=== PATIENT | male | born 1960 | race Caucasian/White ===

== ENCOUNTER 2020-11-24 16:31 | Observation (INO) | payer OTHER ==
[2020-11-24 18:01] LABS: Absolute Lymphocytes (CBC) 0.6 K/uL (0.7-4.9); Basophils % 0.1 % (0-1.3); Hematocrit 32.2 % (39.6-49.0); Lymphocytes % 10.3 % (15.3-44.8); MPV 9.3 fL (7.6-11.3); RBC Red Blood Cell Count 3.01 M/uL (4.33-5.43)
[2020-11-24] MEDS ORDERED: METHYLPREDNISOLONE 125 MG INJ ONE (18:07)
--- NOTE | 2020-11-24 18:17 | EDPHYS ---
Physician Documentation [facility] Name: Saúl Tan Age: 59 yrs Sex: Male : 1960 Arrival Date: 11/24/2020 Time: 16:33 Bed 25 Private MD: ED Physician Sergio Euceda HPI: 11/24 17:44 This 59 yrs old Male presents to ER via Ambulatory with complaints of COVID+, rn Pneumonia. 17:44 The patient has shortness of breath at rest, with light activity. Onset: The rn symptoms/episode began/occurred 1 week(s) ago. Duration: The symptoms are continuous. The patient's shortness of breath is aggravated by coughing, exertion, light activity. Associated signs and symptoms: Pertinent positives: non-productive cough, Pertinent negatives: chest pain, fever, hemoptysis. Severity of symptoms: At their worst the symptoms were moderate in the emergency department the symptoms are unchanged. The patient has not experienced similar symptoms in the past. The patient has been recently seen by a physician:. Reports diagnosed with Covid pneumonia this morning, sick for 1 week, seen at [place] emergency room and sent home with home oxygen and given antibiotics. Family states is doing worse. Oxygen 81% on room air. Requiring 4 L of oxygen at home and still short of breath. No chronic lung problems. No history of DVT or PE.. Historical: - Allergies: 17:20 No Known Allergies; kg - Home Meds: 17:20 lisinopril 5 mg Oral tab 1 tab once daily [Active]; dexamethasone 2 mg Oral tab 3 times kg per day [Active]; famotidine 20 mg Oral tab 1 tab 2 times per day [Active]; aspirin 325 mg Oral tab 1 tab once daily [Active]; amoxicillin-pot clavulanate 875-125 mg Oral tab 1 tab every 12 hours [Active]; ivermectin 3 mg oral tab 2 tabs [Active]; - PMHx: 17:20 Hypertensive disorder; Hypercholesterolemia; kg - PSHx: 17:20 None; kg - Immunization history:: Adult Immunizations not up to date, Client reports having NOT received the Covid vaccine. - Social history:: Smoking status: Patient denies any tobacco usage or history of. - Family history:: not pertinent. - Hospitalizations: : No recent hospitalization is reported. ROS: 17:44 Constitutional: Negative for fever, chills, and weight loss, Eyes: Negative for injury, rn pain, redness, and discharge, ENT: Negative for injury, pain, and discharge, Neck: Negative for injury, pain, and swelling, Cardiovascular: Negative for chest pain, palpitations, and edema, Respiratory: Positive for cough and shortness of breath Abdomen/GI: Negative for abdominal pain, nausea, vomiting, diarrhea, and constipation, Back: Negative for injury and pain, : Negative for injury, bleeding, discharge, and swelling, MS/Extremity: Negative for injury and deformity, Skin: Negative for injury, rash, and discoloration, Neuro: Negative for headache, numbness, tingling, and seizure. 17:44 All other systems are negative. Exam: 17:44 Constitutional: This is a well developed, well nourished patient who is awake, alert, rn mild tachypnea Head/Face: Normocephalic, atraumatic. Eyes: Pupils equal round and reactive to light, extra-ocular motions intact. Lids and lashes normal. Conjunctiva and sclera are non-icteric and not injected. Cornea within normal limits. Periorbital areas with no swelling, redness, or edema. ENT: No stridor Cardiovascular: Regular rate and rhythm. No pulse deficits. Respiratory: Mild tachypnea, no retractions Abdomen/GI: Soft, non-tender Skin: Warm, dry MS/ Extremity: Pulses equal, no cyanosis. Neuro: Awake and alert, GCS 15 17:53 ECG was reviewed by the Attending Physician. rn Vital Signs: 17:12 BP 115 / 70; Pulse 69; Resp 20; Temp 97.3(TE); Pulse Ox 81% on R/A; Weight 90.72 kg; kg Height 6 ft. 1 in. (185.42 cm); Pain 0/10; 17:25 Pulse Ox 96% on 4 lpm NC; kg 17:53 BP 129 / 74; Pulse 65; Resp 19; Temp 98.2(O); Pulse Ox 95% on 4 lpm NC; Weight 86.18 ld1 kg; Height 6 ft. 1 in. (185.42 cm); Pain 0/10; 17:53 Body Mass Index 25.07 (86.18 kg, 185.42 cm) ld1 MDM: 17:33 Patient medically screened. rn 18:14 Differential diagnosis: Bronchitis pneumonia, pulmonary edema, Covid, Covid pneumonia. rn Antibiotic administration: Not indicated. Data reviewed: vital signs, nurses notes. Data reviewed: lab test result(s), EKG, radiologic studies, plain films, and as a result, I will admit patient. Counseling: I had a detailed discussion with the patient and/or guardian regarding: the historical points, exam findings, and any diagnostic results supporting the discharge/admit diagnosis, lab results, radiology results, the need for further work-up and treatment in the hospital. Response to treatment: the patient's symptoms have mildly improved after treatment, and as a result, I will admit patient. Admission orders: after a detailed discussion of the patient's condition and case, the admit orders are written by me. ED course: Patient with Covid pneumonia, will admit to hospitalist service given oxygen 81% on room air.. 11/24 17:35 Order name: BMP rn 11/24 17:35 Order name: Blood Culture Adult (2) rn 11/24 17:35 Order name: C-Reactive Protein 11/24 17:35 Order name: CBC with Diff rn 11/24 17:35 Order name: D-Dimer; Complete Time: 18:16 11/24 17:35 Order name: Ferritin rn 11/24 17:35 Order name: LFT's 11/24 17:35 Order name: Lactate 11/24 17:35 Order name: PT-INR; Complete Time: 18:16 11/24 17:35 Order name: Procalcitonin 11/24 17:35 Order name: Ptt, Activated; Complete Time: 18:16 10 17:35 Order name: Troponin (emerg Dept Use Only) rn 11/24 17:35 Order name: Basic Metabolic Panel [facility] 11/24 17:35 Order name: Blood Culture [facility] 11/24 17:35 Order name: C-Reactive Protein [facility] 11/24 18:44 Order name: CBC Smear Scan [facility] 11/24 21:33 Order name: Lactate Sepsis 2 HR Follow-up [facility] 11/24 22:47 Order name: Glucose, Ancillary Testing [facility] 11/25 05:44 Order name: CBC with Automated Diff [facility] 11/25 05:55 Order name: Lactate [facility] 11/25 06:27 Order name: Comprehensive Metabolic Panel [facility] 11/25 06:27 Order name: Phosphorus [facility] 11/25 06:27 Order name: Lipid Profile [facility] 11/25 06:27 Order name: C-Reactive Protein [facility] 11/25 06:27 Order name: T4 Free [facility] 11/25 06:27 Order name: Magnesium [facility] 11/25 06:27 Order name: Thyroid Stimulating Hormone [facility] 11/25 06:27 Order name: Ferritin [facility] 11/25 06:27 Order name: Folic Acid, (Folate) [facility] 11/25 06:27 Order name: Vitamin B12 Level [facility] 11/24 17:35 Order name: XRAY Chest (1 view) rn 08 17:35 Order name: EKG; Complete Time: 17:35 rn 11/24 17:35 Order name: Cardiac monitoring; Complete Time: 17:42 rn 11/24 17:35 Order name: Droplet/Contact Precautions; Complete Time: 17:42 rn 11/24 17:35 Order name: EKG - Nurse/Tech; Complete Time: 17:53 rn 11/24 17:35 Order name: IV Start; Complete Time: 17:42 rn 08/10 17:35 Order name: Labs collected and sent; Complete Time: 17:42 rn 10 17:35 Order name: O2 Per Protocol; Complete Time: 17:42 rn 10 17:35 Order name: O2 Sat Monitoring; Complete Time: 17:42 rn 08/10 19:27 Order name: CONS Physician Consult [facility] 11/25 06:37 Order name: Procalcitonin [facility] 11/25 08:44 Order name: Lactate Sepsis 2 HR Follow-up [facility] 11/25 10:07 Order name: CBC Smear Scan [facility] 11/25 11:07 Order name: CT [facility] 11/25 13:02 Order name: Glucose, Ancillary Testing [facility] EC:53 Rate is 56 beats/min. Rhythm is regular. Left axis deviation noted. QRS is negative in rn leads I, aVL. LA interval is normal. QRS interval is normal. QT interval is normal. No Q waves. T waves are Normal. No ST changes noted. Clinical impression: Sinus bradycardia. Interpreted by me. Reviewed by me. Administered Medications: 17:53 Drug: SOLU-Medrol (methylPrednisoLONE) 125 mg Route: IVP; Site: right antecubital; ld1 Disposition Summary: 11/24/20 18:16 Hospitalization Ordered Hospitalization Status: Inpatient Admission rn Provider: Kadeem Amador rn Condition: Stable rn Problem: new rn Symptoms: have worsened rn Bed/Room Type: Standard rn Location: [facility] ER HOLD(11/24/20 20:39) cg Room Assignment: ERHOLD-(11/24/20 20:39) cg Diagnosis - Pneumonia due to SARS-associated coronavirus rn - Hypoxemia rn Forms: - Medication Reconciliation Form rn - SBAR form rn Signatures: Dispatcher [employer] EDMS Sergio Euceda MD MD rn Garcia, Cindy, RN RN cg Sofia Heredia RN RN ld1 Yael Paula RN RN kg Corrections: (The following items were deleted from the chart) 20:39 18:16 Telemetry/MedSurg (Inpatient) rn cg 20:39 18:16 rn cg
--- NOTE | 2020-11-24 18:17 | ER ---
Nurse's Notes [facility] Name: Saúl Tan Age: 59 yrs Sex: Male : 1960 Arrival Date: 11/24/2020 Time: 16:33 Bed 25 Private MD: Diagnosis: Pneumonia due to SARS-associated coronavirus;Hypoxemia Presentation: 11/24 17:12 Chief complaint: Patient states: SOB. Pts stated, " Hes been 85% on 4L at home and kg [place] told us to bring him to the ER." Pt was diagnosed with COVID Pneumonia today at [place] and sent home with oxygen.". Coronavirus screen: Client denies travel out of the [place] in the last 14 days. At this time, unable to obtain information related to travel outside the [place] Client presents with at least one sign or symptom that may indicate coronavirus-19. Standard/surgical mask placed on the client. Provider contacted for isolation considerations. Client reports previous positive COVID test result. Date of collection: November 20, 2020. Ebola Screen: Patient negative for fever greater than or equal to 101.5 degrees Fahrenheit, and additional compatible Ebola Virus Disease symptoms Patient denies exposure to infectious person. Patient denies travel to an Ebola-affected area in the 21 days before illness onset. Initial Sepsis Screen: Does the patient meet any 2 criteria? No. Patient's initial sepsis screen is negative. Does the patient have a suspected source of infection? No. Patient's initial sepsis screen is negative. Risk Assessment: Do you want to hurt yourself or someone else? Patient reports no desire to harm self or others. Onset of symptoms was November 12, 2020. 17:12 Method Of Arrival: Ambulatory kg 17:12 Acuity: JEMAL 3 kg Triage Assessment: 17:20 General: Appears in no apparent distress. Behavior is calm, cooperative, appropriate kg for age, quiet. Pain: Denies pain. Historical: - Allergies: 17:20 No Known Allergies; kg - Home Meds: 17:20 lisinopril 5 mg Oral tab 1 tab once daily [Active]; dexamethasone 2 mg Oral tab 3 times kg per day [Active]; famotidine 20 mg Oral tab 1 tab 2 times per day [Active]; aspirin 325 mg Oral tab 1 tab once daily [Active]; amoxicillin-pot clavulanate 875-125 mg Oral tab 1 tab every 12 hours [Active]; ivermectin 3 mg oral tab 2 tabs [Active]; - PMHx: 17:20 Hypertensive disorder; Hypercholesterolemia; kg - PSHx: 17:20 None; kg - Immunization history:: Adult Immunizations not up to date, Client reports having NOT received the Covid vaccine. - Social history:: Smoking status: Patient denies any tobacco usage or history of. - Family history:: not pertinent. - Hospitalizations: : No recent hospitalization is reported. Screenin:53 Abuse screen: Denies threats or abuse. Denies injuries from another. Nutritional ld1 screening: No deficits noted. Tuberculosis screening: No symptoms or risk factors identified. Fall Risk None identified. Assessment: 17:53 General: Appears in no apparent distress. comfortable, Behavior is calm, cooperative, ld1 appropriate for age. Pain: Denies pain. Neuro: Level of Consciousness is awake, alert, obeys commands, Oriented to person, place, time, situation. Cardiovascular: Capillary refill < 3 seconds Patient's skin is warm and dry. Rhythm is regular. Respiratory: Reports shortness of breath Airway is patent Respiratory effort is even, unlabored, Respiratory pattern is regular, symmetrical. GI: Abdomen is flat, non-distended. : No signs and/or symptoms were reported regarding the genitourinary system. EENT: No signs and/or symptoms were reported regarding the EENT system. Derm: No signs and/or symptoms reported regarding the dermatologic system. Musculoskeletal: No signs and/or symptoms reported regarding the musculoskeletal system. Vital Signs: 17:12 BP 115 / 70; Pulse 69; Resp 20; Temp 97.3(TE); Pulse Ox 81% on R/A; Weight 90.72 kg; kg Height 6 ft. 1 in. (185.42 cm); Pain 0/10; 17:25 Pulse Ox 96% on 4 lpm NC; kg 17:53 BP 129 / 74; Pulse 65; Resp 19; Temp 98.2(O); Pulse Ox 95% on 4 lpm NC; Weight 86.18 ld1 kg; Height 6 ft. 1 in. (185.42 cm); Pain 0/10; 17:53 Body Mass Index 25.07 (86.18 kg, 185.42 cm) ld1 ED Course: 16:33 Patient arrived in ED. mr 17:20 Triage completed. kg 17:20 Arm band placed on right wrist. kg 17:33 Sofia Heredia, RN is Primary Nurse. ld1 17:33 Sergio Euceda MD is Attending Physician. rn 17:53 Patient has correct armband on for positive identification. Placed in gown. Bed in low ld1 position. Call light in reach. Side rails up X2. biomedical equipment specialist on. Pulse ox on. NIBP on. Door closed. Noise minimized. Warm blanket given. 17:53 No provider procedures requiring assistance completed. Inserted saline lock: 20 gauge ld1 in right antecubital area, using aseptic technique. Blood collected. 18:05 XRAY Chest (1 view) In Process Unspecified. EDMS 18:15 Kadeem Amador is Hospitalizing Provider. rn Administered Medications: 17:53 Drug: SOLU-Medrol (methylPrednisoLONE) 125 mg Route: IVP; Site: right antecubital; ld1 Outcome: 18:16 Decision to Hospitalize by Provider. rn 11/25 17:56 Patient left the ED. ld1 Signatures: Dispatcher [employer] EDNY Honeycutt Latisha lee Sergio Euceda MD MD rn Dibbern, Lauren, RN RN ld1 Yael Paula RN RN kg
--- NOTE | 2020-11-24 18:31 | RAD REPORT ---
EXAM DESCRIPTION: RAD - Chest Single View - 11/24/2020 6:04 pm CLINICAL HISTORY: COVID Chest pain. COMPARISON: No comparisons FINDINGS: Portable technique limits examination quality. Extensive bilateral pulmonary opacities are present most compatible with COVID-19 infection. The hear t is normal in size. No displaced fractures.
[2020-11-24 18:35] LABS: ALT/SGPT 38 U/L (12-78); AST/SGOT 49 U/L (15-37); Alkaline Phosphatase 71 U/L (45-117); BUN Blood Urea Nitrogen 39 mg/dL (7-18); Bicarbonate 25 mmol/L (21-32); Bilirubin Direct 0.2 mg/dL (0-0.2); Bilirubin Total 0.6 mg/dL (0.2-1.0); Ferritin 1017.6 ng/mL (26-388); Glucose Level 141 mg/dL (74-106); Potassium 4.1 mmol/L (3.5-5.1); Protein, Total 7.5 g/dL (6.4-8.2); Sodium Level 143 mmol/L (136-145); Troponin (Emerg Dept Use Only) < 0.02 ng/mL (0.0-0.045)
[2020-11-24 18:44] LABS: Blood Morphology Comment NOTED (NOT SEEN); Macrocytosis 1+; Platelet Estimate ADEQ; White Blood Cell Scan OK (OK)
--- NOTE | 2020-11-24 20:21 | P.HP ---
Certification for Inpatient Patient admitted to: Inpatient With expected LOS: >2 Midnights Patient will require the following post-hospital care: None Practitioner: I am a practitioner with admitting privileges, knowledge of patient current condition, hospital course, and medical plan of care. Services: Services provided to patient in accordance with Admission requirements found in Title 42 Section 412.3 of the Code of Federal Regulations Patient History Date of Service: 11/24/20 Primary Care Provider: Morgan Reason for admission: covid pneumonia History of Present Illness: MR. Tan is a 59 yo M with HTN and HLD who presents with 2 weeks of SOB. His symptoms began 11/12 and he was diagnosed with COVID last Monday. Today he was sent home from [place] with home O2, but continued to be SOB so he presented to [facility] ED. He reports anorexia, cough, wheezing, pleuritic pain, diarrhea nd fever. Denies nausea and vomiting. Fluid intake has been poor. Initial saturations 81% on room air. Ddimer 5880, Lactate 2.7, Ferritin 1017, CRP 81.5. CXR consistent with covid pneumonia. - Past Medical/Surgical History Diabetic: No -: HTN -: HLD Past Surgical History: Patient denies surgical history - Family History Father -: Cancer Mother -: Stroke - Social History Smoking Status: Never smoker Alcohol use: No CD- Drugs: No Caffeine use: Yes Place of Residence: Home Review of Systems 10-point ROS is otherwise unremarkable General: Fever, Chills, Sweats Respiratory: Cough, Shortness of Breath, SOB with Excertion, Pleuritic Pain, Wheezing Gastrointestinal: Diarrhea Physical Examination - Physical Exam General: Alert, In no apparent distress HEENT: Atraumatic, PERRLA, Mucous membr. moist/pink, EOMI, Sclerae nonicteric Neck: Supple, 2+ carotid pulse no bruit, No LAD, Without JVD or thyroid abnormality Respiratory: Normal air movement, Expiratory wheezes Cardiovascular: Regular rate/rhythm, Normal S1 S2 Gastrointestinal: Normal bowel sounds, No tenderness Musculoskeletal: No tenderness Integumentary: No rashes Neurological: Normal speech, Normal strength at 5/5 x4 extr, Normal tone, Normal affect Lymphatics: No axilla or inguinal lymphadenopathy - Studies Laboratory Data (last 24 hrs) 11/24/20 17:45: PT 11.5, INR 1.00, APTT 23.3 L 11/24/20 17:45: WBC 6.10, Hgb 10.8 L, Hct 32.2 L, Plt Count 208 11/24/20 17:45: Sodium 143, Potassium 4.1, BUN 39 H, Creatinine 1.22, Glucose 141 H, Total Bilirubin 0.6, AST 49 H, ALT 38, Alkaline Phosphatase 71 Assessment and Plan - Problems (Diagnosis) (1) HTN (hypertension) Current Visit: Yes Status: Chronic Qualifiers: Hypertension type: primary hypertension Qualified Code(s): I10 - Essential (primary) hypertension (2) HLD (hyperlipidemia) Current Visit: Yes Status: Chronic Qualifiers: Hyperlipidemia type: unspecified Qualified Code(s): E78.5 - Hyperlipidemia, unspecified (3) Pneumonia due to COVID-19 virus Current Visit: Yes Status: Acute - Plan pulm consulted, respiratory therapy consulted daily saturations, saturations for home O2 continue covid supplements, steroids, ivermectin, xarelto daily CRP, ferritin, procal BP stable, continue to monitor continue home medications CTPE pending Discharge Plan: Home Plan to discharge in: 48 Hours - Advance Directives Does patient have a Living Will: No Does patient have a Durable POA for Healthcare: No - Code Status/Comfort Care Code Status Assessed: Yes (full code ) Critical Care: No Time Spent Managing Pts Care (In Minutes): 70
[2020-11-24] MEDS ORDERED: IPRATROPIUM BROM 0.5MG/2.5ML NEB PRN (22:07)
[2020-11-24] MEDS ORDERED: D50W 25 GM/50 ML SYRINGE IV PRN (22:07)
[2020-11-24] MEDS: FAMOTIDINE 20 MG TAB PO SCH (22:07)
[2020-11-24] MEDS ORDERED: MELATONIN 5 MG TABLET PO PRN (22:07)
[2020-11-24] MEDS: INSULIN -REGULAR HUMAN 50 UNIT/0.5 ML ML SQ SCH (22:07)
[2020-11-24] MEDS ORDERED: ACETAMINOPHEN 500 MG TAB PO PRN (22:07)
[2020-11-24] MEDS ORDERED: BENZONATATE 100 MG CAP PO PRN (22:07)
[2020-11-24] MEDS ORDERED: GLUCAGON 1 MG/VIAL IM PRN (22:07)
[2020-11-24] MEDS ORDERED: ONDANSETRON 4 MG/2 ML VIAL IV PRN (22:07)
[2020-11-24] MEDS ORDERED: ALBUTEROL 2.5 MG/3 ML NEB SOL NEB PRN (22:07)
[2020-11-24] MEDS ORDERED: NA CHLORIDE 0.9% 500 ML IV ONE (22:07)
[2020-11-24] MEDS ORDERED: MORPHINE 2 MG/ML SYR IV PRN (22:07)
[2020-11-24] MEDS: ASCORBIC ACID 500 MG TABLET PO SCH (22:07)
[2020-11-24 22:15] VITALS: BMI 27.2
[2020-11-24] MEDS ORDERED: FAMOTIDINE 20 MG TAB ONE (23:06)
[2020-11-24] MEDS ORDERED: ASCORBIC ACID 500 MG TABLET ONE (23:06)
[2020-11-24] MEDS ORDERED: NA CHLORIDE 0.9% 500 ML ONE (23:06)
[2020-11-24] MEDS ORDERED: METHYLPREDNISOLONE 40 MG INJ ONE (23:06)
[2020-11-25 05:37] LABS: Absolute Lymphocytes (CBC) 0.6 K/uL (0.7-4.9); Basophils % 0.1 % (0-1.3); Hematocrit 27.9 % (39.6-49.0); Lymphocytes % 14.3 % (15.3-44.8); MPV 8.9 fL (7.6-11.3)
[2020-11-25 06:18] LABS: ALT/SGPT 44 U/L (12-78); AST/SGOT 45 U/L (15-37); Albumin 2.7 g/dL (3.4-5.0); Alkaline Phosphatase 61 U/L (45-117); BUN Blood Urea Nitrogen 41 mg/dL (7-18); Bicarbonate 27 mmol/L (21-32); Bilirubin Total 0.5 mg/dL (0.2-1.0); Ferritin 992.5 ng/mL (26-388); Folic Acid, (Folate) 18.6 ng/mL (3.1-17.5); Glucose Level 166 mg/dL (74-106); HDL Cholesterol 32 mg/dL (40-60); LDL Cholesterol, Calculated 42 (<130); Phosphorus 3.7 mg/dL (2.5-4.9); Potassium 4.1 mmol/L (3.5-5.1); Protein, Total 6.5 g/dL (6.4-8.2); Sodium Level 144 mmol/L (136-145); Thyroid Stimulating Hormone 0.062 uIU/mL (0.360-3.740)
[2020-11-25 06:27] LABS: Magnesium 3.6 mg/dL (1.8-2.4)
[2020-11-25] MEDS: INSULIN -REGULAR HUMAN 50 UNIT/0.5 ML ML SQ SCH ×2 (07:30→11:30)
--- NOTE | 2020-11-25 07:32 | EKG ---
Test Date: 2020-11-24 Test Time: 17:51:49 Global Cto: STEPHANIE MEASUREMENT RESULTS: Intervals: Rate: 56 OR: 126 QRSD: 92 QT: 446 QTc: 430 [place]: P: 111 OR: 126 QRS: 116 T: 106 INTERPRETIVE STATEMENTS: Suspect arm lead reversal, interpretation assumes no reversal Sinus bradycardia Left posterior fascicular block Abnormal ECG No previous ECG available for comparison Electronically Signed On 11-25-20 07:31:05 CDT by Rolan Yanes
[2020-11-25] MEDS ORDERED: IVERMECTIN 3 MG TABLET PO SCH (08:00)
[2020-11-25] MEDS ORDERED: THIAMINE HCL 100 MG TABLET PO SCH (09:00)
[2020-11-25] MEDS ORDERED: ZINC SULFATE 220 MG CAP PO SCH (09:00)
[2020-11-25] MEDS ORDERED: VITAMIN D 1000 UNIT TAB PO SCH (09:00)
[2020-11-25] MEDS: ASCORBIC ACID 500 MG TABLET PO SCH ×2 (09:00→13:00)
[2020-11-25] MEDS: FAMOTIDINE 20 MG TAB PO SCH (09:00)
[2020-11-25] MEDS ORDERED: METHYLPREDNISOLONE 40 MG INJ IV SCH (09:00)
[2020-11-25 10:05] LABS: Blood Morphology Comment NOTED (NOT SEEN); White Blood Cell Scan OK (OK)
[2020-11-25 10:06] LABS: Anisocytosis 1+; Macrocytosis 1+; Platelet Estimate ADEQ
[2020-11-25] MEDS ORDERED: ASCORBIC ACID 500 MG TABLET ONE (10:26)
[2020-11-25] MEDS ORDERED: METHYLPREDNISOLONE 40 MG INJ ONE (10:27)
[2020-11-25] MEDS ORDERED: FAMOTIDINE 20 MG TAB ONE ×2 (10:27→10:29)
[2020-11-25] MEDS ORDERED: ZINC SULFATE 220 MG CAP ONE (10:27)
[2020-11-25] MEDS ORDERED: VITAMIN D 1000 UNIT TAB ONE (10:27)
[2020-11-25] MEDS ORDERED: THIAMINE HCL 100 MG TABLET ONE (10:27)
[2020-11-25 10:41] VITALS: TEMP 97.5
--- NOTE | 2020-11-25 10:56 | RAD REPORT ---
EXAM DESCRIPTION: CT - Chest For Pe Angio - 11/25/2020 6:10 am CLINICAL HISTORY: The patient is 59 years old and is Male; covid pneumonia TECHNIQUE: Axial computed tomographic angiography images of the chest with intravenous contrast. S agittal and coronal reformatted images were created and reviewed. This CT exam was performed using one or more of the following dose reduction techniques: automated exposure control, adjustment of t he mA and/or kV according to patient size, and/or use of iterative reconstruction technique. MIP re constructed images were created and reviewed. COMPARISON: CT chest angiography November 24, 2020 9:00 AM. FINDINGS: Pulmonary arteries: Unremarkable. No pulmonary embolism. Aorta: Scattered atherosclerotic vascular calcifications. No thoracic aortic aneurysm. Lungs: Scattered patchy groundglass opacities throughout the lungs bilaterally, unchanged compar ed to the prior exam. Pleural space: Unremarkable. No significant effusion. No pneumothorax. Heart: Unremarkable. No cardiomegaly. No significant pericardial effusion. No evidence of RV dysfunction. Mediastinum: Small hiatal hernia. Bones/joints: Multilevel disc space narrowing with degenerative endplate changes in the midthora cic spine. No acute fracture. No dislocation. Soft tissues: Unremarkable. Lymph nodes: Unremarkable. No enlarged lymph nodes. IMPRESSION: 1. No evidence of pulmonary embolism. 2. Scattered patchy groundglass opacities throughout the lungs bilaterally, unchanged compared to t he prior exam. Findings are nonspecific but can be seen with infectious and inflammatory etiologies , including Covid. Electronically signed by: Davy Scott MD 11/24/2020 11:27 PM CDT Due to temporary technical issues with the PACS/Fluency reporting system, reports are being signed by the in house radiologist without review as a courtesy to ensure prompt reporting. The interpreting r adiologist is fully responsible for the content of the report.
[2020-11-25 13:12] VITALS: BP 115/57
--- NOTE | 2020-11-25 15:07 | P.CNS ---
Date of Consult: 11/25/20 Reason for Consult: COVID pneumia Primary Care Provider: Morgan Chief Complaint: covid pneumonia History of Present Illness: gE 59 aw COVID penumonia and resp failure Allergies No Known Allergies Allergy (Unverified 11/24/20 22:07) - Past Medical/Surgical History Diabetic: No -: HTN -: HLD - Family History Father Medical History: Cancer Mother Medical History: Stroke - Social History Alcohol use: No CD- Drugs: No Caffeine use: Yes Place of Residence: Home Review of Systems General: Weakness Respiratory: Shortness of Breath Physical Examination Temp Pulse Resp BP Pulse Ox 97.5 F 85 16 115/57 L 92 11/25/20 12:00 11/25/20 12:00 11/25/20 12:00 11/25/20 12:00 11/25/20 12:00 General: Alert, In no apparent distress, Oriented x3, Cooperative Laboratory Data (last 24 hrs) 11/24/20 17:45: PT 11.5, INR 1.00, APTT 23.3 L 11/24/20 17:45: WBC 6.10, Hgb 10.8 L, Hct 32.2 L, Plt Count 208 11/24/20 17:45: Sodium 143, Potassium 4.1, BUN 39 H, Creatinine 1.22, Glucose 141 H, Total Bilirubin 0.6, AST 49 H, ALT 38, Alkaline Phosphatase 71 - Problems (1) Pneumonia due to COVID-19 virus Current Visit: Yes Status: Acute Plan: age 59 AW COVID pneumonia/CT scan GG changes/ CW steroids on NC O2 poss DC am/Add Aspirin
[2020-11-25 15:41] VITALS: O2SAT 99
[2020-11-25] MEDS ORDERED: ASPIRIN EC 81 MG TAB PO SCH (16:00)
--- NOTE | 2020-11-25 16:00 | P.DS ---
Admission Date: 11/24/20 Discharge Date: 11/25/20 Primary Care Provider: Morgan Disposition: ROUTINE DISCHARGE Discharge Condition: FAIR Reason for Admission: covid pneumonia - Problems (1) Acute respiratory failure with hypoxia Current Visit: Yes Status: Acute (2) Pneumonia due to COVID-19 virus Current Visit: Yes Status: Acute (3) Anemia Current Visit: Yes Status: Acute Brief History of Present Illness: MR. Tan is a 59 yo M with HTN and HLD who presents with 2 weeks of SOB. His symptoms began 11/12 and he was diagnosed with COVID last Monday. Today he was sent home from [place] with home O2, but continued to be SOB so he presented to [facility] ED. He reports anorexia, cough, wheezing, pleuritic pain, diarrhea nd fever. Denies nausea and vomiting. Fluid intake has been poor. Initial saturations 81% on room air. Ddimer 5880, Lactate 2.7, Ferritin 1017, CRP 81.5. CXR consistent with covid pneumonia. Hospital Course: Patient admitted to the medical floor and started on IV steroid, vitamin supplementation and zinc supplementation. He was maintained on 4 L of oxygen by nasal cannula. Patient was seen in consultation by pulmonary-Dr. Felton. Patient stated he is comfortable and would like to go home. He was asked to stay for monitoring to make sure he does not get worse. He declined to stay. Patient is discharged prednisone taper. He has oxygen at home to use. He is informed to return to the ED if he is needing more oxygen. He will also follow up with Dr. Felton within 1 week. Vital Signs/Physical Exam: Temp Pulse Resp BP Pulse Ox 97.5 F 85 16 115/57 L 92 11/25/20 12:00 11/25/20 12:00 11/25/20 12:00 11/25/20 12:11/25/20 12:00 General: Alert, In no apparent distress, Oriented x3 HEENT: Other (Oxygen by nasal cannula) Neck: JVD not distended Respiratory: Other (Nonlabored breathing) Cardiovascular: No edema, Regular rate/rhythm Capillary refill: <2 Seconds Gastrointestinal: Soft and benign, Non-distended, No tenderness Musculoskeletal: No swelling, No erythema Integumentary: No rashes Neurological: Normal strength at 5/5 x4 extr Laboratory Data at Discharge: WBC 4.50 K/uL (4.3-10.9) D 11/25/20 05:17 Hgb 9.4 g/dL (13.6-17.9) L 11/25/20 05:17 Hct 27.9 % (39.6-49.0) L 11/25/20 05:17 Plt Count 178 K/uL (152-406) 11/25/20 05:17 PT 11.5 SECONDS (9.5-12.5) 11/24/20 17:45 INR 1.00 11/24/20 17:45 APTT 23.3 SECONDS (24.3-36.9) L 11/24/20 17:45 Sodium 144 mmol/L (136-145) 11/25/20 05:17 Potassium 4.1 mmol/L (3.5-5.1) 11/25/20 05:17 BUN 41 mg/dL (7-18) H 11/25/20 05:17 Creatinine 1.02 mg/dL (0.55-1.3) 11/25/20 05:17 Glucose 166 mg/dL (74-106) H 11/25/20 05:17 Phosphorus 3.7 mg/dL (2.5-4.9) 11/25/20 05:17 Magnesium 3.6 mg/dL (1.8-2.4) H* 11/25/20 05:17 Total Bilirubin 0.5 mg/dL (0.2-1.0) 11/25/20 05:17 AST 45 U/L (15-37) H 11/25/20 05:17 ALT 44 U/L (12-78) 11/25/20 05:17 Alkaline Phosphatase 61 U/L (45-117) 11/25/20 05:17 Triglycerides 138 mg/dL (<150) 11/25/20 05:17 Cholesterol 102 mg/dL (<200) 11/25/20 05:17 HDL Cholesterol 32 mg/dL (40-60) L 11/25/20 05:17 Cholesterol/HDL Ratio 3.19 11/25/20 05:17 Home Medications: Ascorbic Acid [Vitamin C*] 1,000 mg PO TID #180 tablet 11/25/20 Aspirin [Aspirin EC 81 MG] 162 mg PO DAILY #60 tablet.dr 11/25/20 Benzonatate [Tessalon Perle*] 100 mg PO TID PRN #30 cap 11/25/20 Cholecalciferol (Vitamin D3) [Vitamin D3] 2,000 unit PO DAILY #60 capsule 11/25/20 Famotidine [Pepcid*] 20 mg PO BID #60 tab 11/25/20 Ivermectin 18 mg PO Q48H #1 tablet 11/25/20 Thiamine HCl [Vitamin B-1*] 200 mg PO DAILY #60 tablet 11/25/20 Zinc Sulfate [Zinc Sulfate*] 220 mg PO DAILY #30 cap 11/25/20 predniSONE [Prednisone*] 20 mg PO BID #21 tab 11/25/20 New Medications: Aspirin [Aspirin EC 81 MG] 162 mg PO DAILY #60 tablet. Ivermectin 18 mg PO Q48H #1 tablet Famotidine [Pepcid*] 20 mg PO BID #60 tab predniSONE [Prednisone*] 20 mg PO BID #21 tab Benzonatate [Tessalon Perle*] 100 mg PO TID PRN #30 cap PRN Reason: Cough Thiamine HCl [Vitamin B-1*] 200 mg PO DAILY #60 tablet Ascorbic Acid [Vitamin C*] 1,000 mg PO TID #180 tablet Cholecalciferol (Vitamin D3) [Vitamin D3] 2,000 unit PO DAILY #60 capsule Zinc Sulfate [Zinc Sulfate*] 220 mg PO DAILY #30 cap Diet: AHA Activity: Ad anna Followup: Unknown,U [Primary Care Provider] - Byron Felton MD [ACTIVE - CAN ADMIT] - 1 Week Time spent managing pt's care (in minutes): 38
[2020-11-25] MEDS ORDERED: RIVAROXABAN 10 MG TABLET PO SCH (17:00)
[2020-11-25] MEDS ORDERED: RIVAROXABAN 20 MG TABLET PO SCH (17:00)
[2020-11-25] MEDS ORDERED: predniSONE 20 MG TAB PO SCH (21:00)
[2020-11-26] MEDS ORDERED: CYANOCOBALAMIN 1000MCG/ML INJ IM ONE (13:46)
== END 2020-11-25 17:00 | disposition home or self-care (01) ==
LOC: ER 16:31 → ERHOLD 19:26 → INTOOBSV 19:26 → 2ND 20:29 → ERHOLD 20:31
PROVIDERS: ADMIT Internal Medicine; ATTEND Internal Medicine
DX: U07.1 COVID-19 (principal); J12.82 Pneumonia due to coronavirus disease 2019; J96.01 Acute respiratory failure with hypoxia; D64.9 Anemia, unspecified; I10 Essential (primary) hypertension; E78.5 Hyperlipidemia, unspecified; Z82.3 Family history of stroke; Z80.9 Family history of malignant neoplasm, unspecified
CPT/HCPCS: 93005; 87040 ×2; 85025 ×2; 80048; 36415; 83735; 84100; 85610; 80061; 82947 ×2; 85379; 80076; 83605 ×4; 85730; 84443; 84484; 84439; 82728 ×2; 82746; 82607; 80053; 84145 ×2; 86140 ×2; 71275; 71045; 94760 ×3; 96374; 99284; Q9967; J7040; J2930; J2920 ×2; G0378 ×3

== ENCOUNTER 2020-11-25 23:40 | Inpatient (IN) | payer OTHER ==
[2020-11-26 00:36] LABS: Absolute Lymphocytes (CBC) 0.6 K/uL (0.7-4.9); Basophils % 0.3 % (0-1.3); Hematocrit 29.6 % (39.6-49.0); Lymphocytes % 11.4 % (15.3-44.8); MPV 9.1 fL (7.6-11.3); RBC Red Blood Cell Count 2.75 M/uL (4.33-5.43)
[2020-11-26 01:00] LABS: C-Reactive Protein 38.8 mg/L (<3.00); Potassium 3.8 mmol/L (3.5-5.1)
[2020-11-26] MEDS ORDERED: LORazepam 2 MG/ML VIAL ONE (02:18)
[2020-11-26 02:25] LABS: Blood Morphology Comment NOTED (NOT SEEN); Macrocytosis 1+; Ovalocytes 2+; Platelet Estimate ADEQ; Polychromasia SLIGHT
--- NOTE | 2020-11-26 02:26 | EDPHYS ---
Physician Documentation [facility] Name: Saúl Tan Age: 59 yrs Sex: Male : 1960 Arrival Date: 11/25/2020 Time: 23:47 Bed 5 Private MD: ED Physician Sergio Euceda HPI: 11/26 00:10 This 59 yrs old Male presents to ER via EMS with complaints of Shortness Of rn Breath. 00:10 The patient has shortness of breath at rest, with light activity. Onset: The rn symptoms/episode began/occurred 1 week(s) ago. Duration: The symptoms are intermittent. The patient's shortness of breath is aggravated by coughing, exertion, light activity, talking. Associated signs and symptoms: Pertinent positives: non-productive cough, Pertinent negatives: chest pain, hemoptysis, loss of consciousness. Severity of symptoms: At their worst the symptoms were moderate in the emergency department the symptoms have improved. The patient has experienced similar episodes in the past. The patient has been recently seen at the [facility] Emergency Department, The patient has been recently been admitted at [facility]. Patient just discharged earlier today, was admitted overnight, sent home with home oxygen. Returns for increased anxious feeling due to not being able to breathe well, even with oxygen on. EMS reports was 80% on 5L, and when stood up to get to stretcher dropped to low 70s. Pt denies chest pain. Reports "just doesn't feel well". . Historical: - Allergies: 00:05 No Known Allergies; lp1 - Home Meds: 00:05 amoxicillin-pot clavulanate 875-125 mg Oral tab 1 tab every 12 hours [Active]; aspirin lp1 325 mg Oral tab 1 tab once daily [Active]; dexamethasone 2 mg Oral tab 3 times per day [Active]; famotidine 20 mg Oral tab 1 tab 2 times per day [Active]; ivermectin 3 mg Oral tab 2 tabs [Active]; lisinopril 5 mg Oral tab 1 tab once daily [Active]; - PMHx: 00:05 Hypercholesterolemia; Hypertensive disorder; lp1 - PSHx: 00:05 None; lp1 - Immunization history:: Adult Immunizations up to date, Client reports having NOT received the Covid vaccine. - Social history:: Smoking status: Patient denies any tobacco usage or history of. - Family history:: not pertinent. - Hospitalizations: : The patient was recently seen at [facility]. 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 00:10 All other systems are negative. rn Exam: 00:10 Constitutional: This is a well developed, well nourished patient who is awake, alert, rn mild tachypnea, seems anxious Head/Face: Normocephalic, atraumatic. Eyes: Periorbital areas with no swelling, redness, or edema. ENT: No stridor Cardiovascular: Bradycardic, regular. No pulse deficits. Respiratory: + mild tachypnea, no retractions Abdomen/GI: Soft, non-tender Skin: Warm, dry, no cyanosis MS/ Extremity: Pulses equal, no cyanosis. Neuro: Awake and alert, GCS 15 Vital Signs: 00:02 BP 157 / 83; Pulse 66; Resp 14; Temp 98(O); Pulse Ox 99% on 15% Non-rebreather mask; lp1 Weight 90.72 kg (R); Height 6 ft. 1 in. (185.42 cm); Pain 0/10; 00:06 Pulse Ox 94% on 5 lpm NC; lp1 00:10 BP 123 / 75; Pulse 59; Resp 15; Pulse Ox 94% on 5 lpm NC; lp1 01:05 BP 135 / 76; Pulse 60; Resp 22; Pulse Ox 96% on 5 lpm NC; lp1 02:00 BP 136 / 79; Pulse 62; Resp 22; Pulse Ox 92% on 5 lpm NC; lp1 00:02 Body Mass Index 26.39 (90.72 kg, 185.42 cm) lp1 MDM: 08/11 23:53 Patient medically screened. rn 11/26 01:47 Differential diagnosis: Anxiety Reaction pneumonia, Psychogenic reactive airway rn disease, Covid pneumonia. Data reviewed: vital signs, nurses notes, lab test result(s), EKG, radiologic studies, plain films. 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 Interpretation: acceptable. ED course: Patient seems to do well on the 5 L of oxygen that he was discharged on earlier today. Is even able to walk to the bathroom without oxygen and does not seem very labored. Patient even fell asleep and oxygen remained stable. Patient with episodes of hyperventilation and I feel anxiety, works himself up, to the point where his heart rate jumps and gets lightheaded.. 02:22 Test interpretation: by ED physician or midlevel provider: plain radiologic studies, rn Chest x-ray with bilateral pulmonary infiltrates consistent with Covid pneumonia. Counseling: I had a detailed discussion with the patient and/or guardian regarding: the historical points, exam findings, and any diagnostic results supporting the discharge/admit diagnosis, lab results, radiology results, the need for further work-up and treatment in the hospital. Response to treatment: There is no appreciated change of the patient's symptoms at this time, and as a result, I will admit patient. Admission orders: after a detailed discussion of the patient's condition and case, the admit orders are written by me. ED course: Patient seems fine at times, then has times where he appears like he cannot breathe, hyperventilates, seems more consistent with anxiety and hyperventilation. I spoke with , very tearful and scared, pleading to not send him home. There is an elevation in D-dimer but otherwise imaging seems to be about the same. Will readmit to hospital for further monitoring and counseling, but anticipate a quick discharge.. 11/26 00:05 Order name: Ferritin; Complete Time: 01:35 rn 11/26 00:05 Order name: CRP; Complete Time: 01:35 rn 11/26 00:05 Order name: CBC with Diff; Complete Time: 02:37 rn 11/26 00:05 Order name: Basic Metabolic Panel; Complete Time: 01:35 rn 11/26 00:05 Order name: D-Dimer; Complete Time: 01:35 rn 11/26 00:47 Order name: Manual Differential; Complete Time: 02:37 EDMS 11/26 06:29 Order name: Comprehensive Metabolic Panel EDMS 11/26 06:46 Order name: Lactate EDMS 11/26 06:55 Order name: Phosphorus EDMS 11/26 06:55 Order name: C-Reactive Protein EDMS 11/26 06:55 Order name: Magnesium EDMS 11/26 06:55 Order name: Ferritin EDMS 11/26 07:03 Order name: Procalcitonin EDMS 11/26 09:48 Order name: Glucose, Ancillary Testing EDAR 11/26 00:04 Order name: XRAY Chest (1 view) rn 11/26 00:05 Order name: IV Start; Complete Time: 00:09 rn 11/26 00:06 Order name: Cardiac monitoring; Complete Time: 00:09 rn 11/26 00:06 Order name: O2 Sat Monitoring; Complete Time: 00:09 rn 11/26 00:06 Order name: O2 Per Protocol; Complete Time: 00:09 rn 11/26 02:08 Order name: CONS Physician Consult EDAR 11/26 10:05 Order name: Lactate Sepsis 2 HR Follow-up EDAR 11/26 13:08 Order name: Glucose, Ancillary Testing EDAR 11/26 14:25 Order name: CT EDAR 11/26 18:36 Order name: Glucose, Ancillary Testing EDMS Administered Medications: 02:05 Drug: Ativan (LORazepam) 0.5 mg Route: IVP; Site: right antecubital; lp1 02:30 Follow up: Response: No adverse reaction lp1 Disposition Summary: 11/26/20 02:25 Hospitalization Ordered Hospitalization Status: Observation rn Provider: Kadeem Amador rn Condition: Stable rn Problem: an ongoing problem rn Symptoms: are unchanged rn Bed/Room Type: Standard rn Location: Telemetry/MedSurg (observation)(11/26/20 19:24) tl1 Room Assignment: 430(11/26/20 19:24) tl1 Diagnosis - Pneumonia due to SARS-associated coronavirus rn - Hypoxemia rn - Hyperventilation rn - Anxiety disorder, unspecified rn Forms: - Medication Reconciliation Form rn - SBAR form rn Signatures: Dispatcher [employer] EDSergio Hodge MD MD rn Gemma Billy RN RN lp1 Tania Evans RN RN tl1 Corrections: (The following items were deleted from the chart) 03:24 02:25 Telemetry/MedSurg (observation) rn tl1 03:24 02:25 rn tl1 19:24 03:24 [facility] ER HOLD tl1 tl1 19:24 03:24 ERHOLD- tl1 tl1
--- NOTE | 2020-11-26 02:26 | ER ---
Nurse's Notes [facility] Name: Saúl Tan Age: 59 yrs Sex: Male : 1960 Arrival Date: 11/25/2020 Time: 23:47 Bed 5 Private MD: Diagnosis: Pneumonia due to SARS-associated coronavirus;Hypoxemia;Hyperventilation;Anxiety disorder, unspecified Presentation: 11/26 00:02 Chief complaint: EMS states: Called for patient with shortness of breath, discharged lp1 from hospital today with dx of COVID pneumonia, home O2 of 5L NC; Per EMS, patient was 80% O2 on 5L NC on arrival to home; placed on NRB at 15L, O2 to 96%. Coronavirus screen: Client denies travel out of the [place] in the last 14 days. Client reports previous positive COVID test result. Ebola Screen: No symptoms or risks identified at this time. Initial Sepsis Screen: Does the patient meet any 2 criteria? No. Patient's initial sepsis screen is negative. Does the patient have a suspected source of infection? No. Patient's initial sepsis screen is negative. Risk Assessment: Do you want to hurt yourself or someone else? Patient reports no desire to harm self or others. Onset of symptoms was November 26, 2020. 00:02 Method Of Arrival: EMS: [facility] lp1 00:02 Acuity: JEMAL 3 lp1 00:05 Care prior to arrival: Medication(s) given: Solu-Medrol 125mg IV IV initiated. 18 GA, lp1 in the right antecubital area. Historical: - Allergies: 00:05 No Known Allergies; lp1 - Home Meds: 00:05 amoxicillin-pot clavulanate 875-125 mg Oral tab 1 tab every 12 hours [Active]; aspirin lp1 325 mg Oral tab 1 tab once daily [Active]; dexamethasone 2 mg Oral tab 3 times per day [Active]; famotidine 20 mg Oral tab 1 tab 2 times per day [Active]; ivermectin 3 mg Oral tab 2 tabs [Active]; lisinopril 5 mg Oral tab 1 tab once daily [Active]; - PMHx: 00:05 Hypercholesterolemia; Hypertensive disorder; lp1 - PSHx: 00:05 None; lp1 - Immunization history:: Adult Immunizations up to date, Client reports having NOT received the Covid vaccine. - Social history:: Smoking status: Patient denies any tobacco usage or history of. - Family history:: not pertinent. - Hospitalizations: : The patient was recently seen at [facility]. Screenin:07 Abuse screen: Denies threats or abuse. Denies injuries from another. Nutritional lp1 screening: No deficits noted. Tuberculosis screening: No symptoms or risk factors identified. Fall Risk None identified. Assessment: 00:07 General: Appears uncomfortable, Behavior is anxious. Pain: Denies pain. Neuro: Level of lp1 Consciousness is awake, alert, obeys commands, Oriented to person, place, time, situation. Cardiovascular: Patient's skin is warm and dry. Respiratory: Airway is patent Trachea midline Respiratory effort is even, unlabored, Respiratory pattern is regular, Breath sounds are clear bilaterally. GI: No signs and/or symptoms were reported involving the gastrointestinal system. : No signs and/or symptoms were reported regarding the genitourinary system. EENT: No signs and/or symptoms were reported regarding the EENT system. Derm: Skin is pink, warm \T\ dry. Musculoskeletal: No deficits noted. 00:35 Reassessment: O2 at 78% on monitor, on arrival to room, patient is sitting up, lp1 hyperventilating, NC pulled off, appears anxious, educated patient on reapplying NC for O2 comfort, coached patient with slowing breathing to improved oxygenation. 01:03 Reassessment: Patient appears in no apparent distress at this time. Patient resting, lp1 eyes closed, appears calm; O2 96% on 5L NC. 02:00 Reassessment: Patient found to have removed monitor cords, noted to be lp1 hyperventilating, O2 at 84% on 5L NC; coached patient to slow breathing; O2 at 92% on 5L NC. Vital Signs: 00:02 BP 157 / 83; Pulse 66; Resp 14; Temp 98(O); Pulse Ox 99% on 15% Non-rebreather mask; lp1 Weight 90.72 kg (R); Height 6 ft. 1 in. (185.42 cm); Pain 0/10; 00:06 Pulse Ox 94% on 5 lpm NC; lp1 00:10 BP 123 / 75; Pulse 59; Resp 15; Pulse Ox 94% on 5 lpm NC; lp1 01:05 BP 135 / 76; Pulse 60; Resp 22; Pulse Ox 96% on 5 lpm NC; lp1 02:00 BP 136 / 79; Pulse 62; Resp 22; Pulse Ox 92% on 5 lpm NC; lp1 00:02 Body Mass Index 26.39 (90.72 kg, 185.42 cm) lp1 ED Course: 11/25 23:47 Patient arrived in ED. mw2 23:53 Sergio Euceda MD is Attending Physician. rn 11/26 00:02 Gemma Billy, RN is Primary Nurse. lp1 00:05 Triage completed. lp1 00:05 Arm band placed on. lp1 00:06 Patient has correct armband on for positive identification. Placed in gown. Bed in low lp1 position. Call light in reach. cardiac monitor on. Pulse ox on. NIBP on. 00:10 Maintain EMS IV. Dressing intact. Site clean \T\ dry. Gauge \T\ site: 18g R AC. lp 1 00:15 Initial lab(s) drawn, by me, sent to lab. lp1 01:22 XRAY Chest (1 view) In Process Unspecified. EDMS 02:24 Kadeem Amador is Hospitalizing Provider. rn 03:00 No provider procedures requiring assistance completed. Patient admitted, IV remains in lp1 place. 08:38 Primary Nurse role handed off by Gemma Billy, JODY bp 08:38 Francisco Boateng, RN is Primary Nurse. bp Administered Medications: 02:05 Drug: Ativan (LORazepam) 0.5 mg Route: IVP; Site: right antecubital; lp1 02:30 Follow up: Response: No adverse reaction lp1 Outcome: 02:25 Decision to Hospitalize by Provider. rn 03:31 Admitted to ER Hold. Please see [facility] for further documentation. lp1 03:31 Condition: stable 03:31 Instructed on the need for admit. 20:41 Patient left the ED. ea Signatures: Dispatcher [employer] EDMS Sergio Euceda MD MD rn Pena, Laura, JODY RN lp1 Karen Fields RN RN ea Peltier, Brian, RN RN bp Angelo Rosa mw2 Corrections: (The following items were deleted from the chart) 00:26 00:10 Maintain EMS IV. Dressing intact. Good blood return noted. Site clean \T\ dry. lp1 Gauge \T\ site: 18g R AC. lp1
--- NOTE | 2020-11-26 03:21 | P.HP ---
Certification for Inpatient Patient admitted to: Inpatient With expected LOS: <2 Midnights Patient will require the following post-hospital care: None Practitioner: I am a practitioner with admitting privileges, knowledge of patient current condition, hospital course, and medical plan of care. Services: Services provided to patient in accordance with Admission requirements found in Title 42 Section 412.3 of the Code of Federal Regulations <Chuck Sims - Last Filed: 11/26/20 03:18> Patient History Date of Service: 11/26/20 Reason for admission: covid pneumonia History of Present Illness: Mr. Tan is a 59 yo M with HTN and HLD who presents with COVID pneumonia. He was recently discharged yesterday. Returns with increased SOB and COOK. Ddimer 63767. BUN 52, GFR 66. Glu 131. Ferritin 1048. CRP 38. B12 <60. - Past Medical/Surgical History Diabetic: No -: HTN -: HLD Past Surgical History: Patient denies surgical history - Family History Father -: Cancer Mother -: Stroke - Social History Alcohol use: No CD- Drugs: No Caffeine use: Yes Place of Residence: Home <Chuck Sims Jacinta - Last Filed: 11/26/20 03:18> Date of Service: 11/26/20 <Cihlo Horn - Last Filed: 11/27/20 10:02> Allergies No Known Allergies Allergy (Unverified 11/24/20 22:07) Home Medications: Ascorbic Acid [Vitamin C*] 1,000 mg PO TID #180 tablet 11/25/20 Aspirin [Aspirin EC 81 MG] 162 mg PO DAILY #60 tablet. 11/25/20 Benzonatate [Tessalon Perle*] 100 mg PO TID PRN #30 cap 11/25/20 Cholecalciferol (Vitamin D3) [Vitamin D3] 2,000 unit PO DAILY #60 capsule 11/25/20 Famotidine [Pepcid*] 20 mg PO BID #60 tab 11/25/20 Ivermectin 18 mg PO Q48H #1 tablet 11/25/20 Thiamine HCl [Vitamin B-1*] 200 mg PO DAILY #60 tablet 11/25/20 Zinc Sulfate [Zinc Sulfate*] 220 mg PO DAILY #30 cap 11/25/20 Atorvastatin Calcium [Lipitor] 20 mg PO BEDTIME 11/26/20 Enalapril Maleate [Vasotec] 5 mg PO DAILY 11/26/20 dexAMETHasone [Dexamethasone] 2 mg PO Q8H 11/26/20 Review of Systems 10-point ROS is otherwise unremarkable Respiratory: Cough, Shortness of Breath, SOB with Excertion <Chuck Sims - Last Filed: 11/26/20 03:18> Physical Examination - Physical Exam General: Alert, In no apparent distress HEENT: Atraumatic, PERRLA, Mucous membr. moist/pink, EOMI, Sclerae nonicteric Neck: Supple, 2+ carotid pulse no bruit, No LAD, Without JVD or thyroid abnormality Respiratory: Diminished Cardiovascular: Regular rate/rhythm, Normal S1 S2 Gastrointestinal: Normal bowel sounds, No tenderness Musculoskeletal: No tenderness Integumentary: No rashes Neurological: Normal speech, Normal strength at 5/5 x4 extr, Normal tone, Normal affect Lymphatics: No axilla or inguinal lymphadenopathy - Studies Laboratory Data (last 24 hrs) 11/26/20 00:15: WBC 5.60 D, Hgb 10.0 L, Hct 29.6 L, Plt Count 194 11/26/20 00:15: Sodium 145, Potassium 3.8, BUN 52 H, Creatinine 1.13, Glucose 131 H <Chuck Sims - Last Filed: 11/26/20 03:18> Assessment and Plan - Problems (Diagnosis) (1) Acute respiratory failure with hypoxia Current Visit: No Status: Acute (2) Anemia Current Visit: No Status: Chronic Qualifiers: Anemia type: B12 deficiency Vitamin B12 deficiency anemia type: unspecified B12 deficiency Qualified Code(s): D51.9 - Vitamin B12 deficiency anemia, unspecified (3) Pneumonia due to COVID-19 virus Current Visit: No Status: Acute (4) HLD (hyperlipidemia) Current Visit: No Status: Chronic Qualifiers: Hyperlipidemia type: unspecified (5) HTN (hypertension) Current Visit: No Status: Chronic Qualifiers: Hypertension type: primary hypertension - Plan pulm consulted, RT consulted continue O2, continue ivermectin, covid supplements and IV steroids BP stable, continue to monitor HLD stable, continue to monitor anemia 2/2 b12 deficiency, start oral supplementation DVT ppx Discharge Plan: Home Plan to discharge in: 48 Hours - Advance Directives Does patient have a Living Will: No Does patient have a Durable POA for Healthcare: No - Code Status/Comfort Care Code Status Assessed: Yes (full code ) Critical Care: No Time Spent Managing Pts Care (In Minutes): 70 <Chuck Sims Jacinta - Last Filed: 11/26/20 03:18> - Problems (Diagnosis) (1) Altered mental status Current Visit: Yes Status: Acute (2) Acute respiratory failure with hypoxia Current Visit: No Status: Acute (3) Pneumonia due to COVID-19 virus Current Visit: No Status: Acute (4) HLD (hyperlipidemia) Current Visit: No Status: Chronic Qualifiers: Hyperlipidemia type: unspecified (5) HTN (hypertension) Current Visit: No Status: Chronic Qualifiers: Hypertension type: primary hypertension <Chilo Horn - Last Filed: 11/27/20 10:02> Date of Service: 11/26/20 Subjective Agree with plan of care as mentioned above. 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 His CT of the brain is negative. Patient will be admitted for further evaluation. Review of Systems is unable to be obtained Physical Examination - Vital Signs Reviewed - Physical Exam General: Alert, In no apparent distress, Oriented x2, Confused Respiratory: Diminished Cardiovascular: Regular rate/rhythm, Normal S1 S2, No murmurs Gastrointestinal: Normal bowel sounds, Soft and benign, Non-distended, No tenderness Musculoskeletal: No clubbing, No swelling, No tenderness Neurological: Normal speech, Normal strength at 5/5 x4 extr, Normal tone, Se nsation intact, Cranial nerves 3-12 intact Assessment & Plan - Problems (Diagnosis) (1) Altered mental status Current Visit: Yes Status: Acute (2) Acute respiratory failure with hypoxia Current Visit: No Status: Acute (3) Pneumonia due to COVID-19 virus Current Visit: No Status: Acute (4) HLD (hyperlipidemia) Current Visit: No Status: Chronic Qualifiers: Hyperlipidemia type: unspecified (5) HTN (hypertension) Current Visit: No Status: Chronic Qualifiers: Hypertension type: primary hypertension - Plan Plan of care as mentioned below: 1. Continue with IV steroids 2. Monitor inflammatory markers 3. Repeat chest x-ray 4. O2 per protocol 5. Pulmonary consultation if symptoms are not improving 6. Continue with albuterol inhaler therapy; also supportive care 7. Monitor LFTs 8. Monitor neuro status 9. GI and DVT prophylaxis <Chilo Horn - Last Filed: 11/27/20 10:02>
[2020-11-26] MEDS ORDERED: ACETAMINOPHEN 500 MG TAB PO PRN (05:29)
[2020-11-26] MEDS ORDERED: ONDANSETRON 4 MG/2 ML VIAL IV PRN (05:29)
[2020-11-26] MEDS ORDERED: MORPHINE 2 MG/ML SYR IV PRN (05:29)
[2020-11-26] MEDS ORDERED: ALBUTEROL 2.5 MG/3 ML NEB SOL NEB PRN (05:29)
[2020-11-26 06:11] VITALS: BMI 26.4
[2020-11-26 06:28] LABS: Potassium 3.9 mmol/L (3.5-5.1)
[2020-11-26 06:54] LABS: Albumin 2.9 g/dL (3.4-5.0); Bilirubin Total 0.8 mg/dL (0.2-1.0); C-Reactive Protein 32.7 mg/L (<3.00); Ferritin 1027.2 ng/mL (26-388); Magnesium 3.4 mg/dL (1.8-2.4); Phosphorus 3.8 mg/dL (2.5-4.9); Protein, Total 6.8 g/dL (6.4-8.2)
--- NOTE | 2020-11-26 07:29 | RAD REPORT ---
EXAM DESCRIPTION: RAD - Chest Single View - 11/26/2020 1:22 am CLINICAL HISTORY: DYSPNEA COMPARISON: Chest Single View dated 11/24/2020; Chest For Pe Angio dated 11/24/2020 FINDINGS: Ill-defined bilateral airspace disease, worse at the left lung base. The right lung looks marginally better aerated. The heart size is within normal limits.No acute osseous abnormality. No si gnificant pleural effusions or pneumothorax. IMPRESSION: Patchy multifocal pneumonia with some marginal improvement in the right lung.
[2020-11-26] MEDS: INSULIN -REGULAR HUMAN 50 UNIT/0.5 ML ML SQ SCH ×4 (07:30→21:00)
[2020-11-26] MEDS ORDERED: POTASSIUM 25 MEQ EFFERV TAB PO ONE (08:00)
[2020-11-26] MEDS: ZINC SULFATE 220 MG CAP PO SCH (09:00)
[2020-11-26] MEDS: VITAMIN D 1000 UNIT TAB PO SCH (09:00)
[2020-11-26] MEDS: THIAMINE HCL 100 MG TABLET PO SCH (09:00)
[2020-11-26] MEDS ORDERED: METHYLPREDNISOLONE 125 MG INJ IV SCH (09:00)
[2020-11-26] MEDS: FAMOTIDINE 20 MG TAB PO SCH ×2 (09:00→21:58)
[2020-11-26] MEDS: ASCORBIC ACID 500 MG TABLET PO SCH ×4 (09:00→21:58)
[2020-11-26] MEDS: CYANOCOBALAMIN 1,000 MCG TAB PO SCH (09:00)
[2020-11-26] MEDS ORDERED: METHYLPREDNISOLONE 125 MG INJ ONE (09:44)
[2020-11-26] MEDS ORDERED: ZINC SULFATE 220 MG CAP ONE (09:45)
[2020-11-26] MEDS ORDERED: THIAMINE HCL 100 MG TABLET ONE (09:45)
[2020-11-26] MEDS ORDERED: ASCORBIC ACID 500 MG TABLET ONE ×2 (09:45→16:00)
[2020-11-26] MEDS ORDERED: VITAMIN D 1000 UNIT TAB ONE (09:45)
[2020-11-26] MEDS ORDERED: POTASSIUM 25 MEQ EFFERV TAB ONE (09:46)
[2020-11-26] MEDS ORDERED: FAMOTIDINE 20 MG TAB ONE (09:46)
[2020-11-26] MEDS ORDERED: CYANOCOBALAMIN 1000MCG/ML INJ IM ONE (14:15)
--- NOTE | 2020-11-26 14:25 | RAD REPORT ---
EXAM DESCRIPTION: CT - Head Brain Wo Cont - 11/26/2020 2:15 pm CLINICAL HISTORY: AMS, new onset headache COMPARISON: No comparisons TECHNIQUE: Axial 5 mm thick images of the head were obtained without IV contrast. All CT scans are performed using dose optimization technique as appropriate and may include automated exposure control or mA/KV adjustment according to patient size. FINDINGS: No intracranial hemorrhage, mass, edema or shift of mid-line structures. No acute infarcti on changes seen. No abnormal extra-axial fluid collections. Ventricles are normal. No significant atr ophy or chronic ischemic change. Mastoid air cells and visualized portions of the paranasal sinuses are clear. No acute bony findings. IMPRESSION: Negative non-contrast CT head examination for acute or significant finding.
[2020-11-26] MEDS ORDERED: RIVAROXABAN 20 MG TABLET PO ONE (16:01)
[2020-11-26] MEDS ORDERED: RIVAROXABAN 10 MG TABLET PO SCH (17:00)
[2020-11-26] MEDS: RIVAROXABAN 20 MG TABLET PO SCH (17:00)
[2020-11-26] MEDS ORDERED: MORPHINE 4 MG/ML SYR ONE (17:43)
[2020-11-26] MEDS: METHYLPREDNISOLONE 125 MG INJ IV SCH (18:00)
[2020-11-27] MEDS: METHYLPREDNISOLONE 125 MG INJ IV SCH ×3 (01:13→21:51)
[2020-11-27] MEDS: INSULIN -REGULAR HUMAN 50 UNIT/0.5 ML ML SQ SCH ×4 (07:30→21:00)
[2020-11-27 08:54] LABS: Albumin 3.1 g/dL (3.4-5.0); Bilirubin Total 1.1 mg/dL (0.2-1.0); C-Reactive Protein 17.7 mg/L (<3.00); Ferritin 966.1 ng/mL (26-388); Magnesium 3.2 mg/dL (1.8-2.4); Phosphorus 2.9 mg/dL (2.5-4.9); Potassium 3.9 mmol/L (3.5-5.1); Protein, Total 6.8 g/dL (6.4-8.2)
[2020-11-27] MEDS ORDERED: IVERMECTIN 3 MG TABLET PO ONE (09:00)
[2020-11-27] MEDS: CYANOCOBALAMIN 1,000 MCG TAB PO SCH (09:00)
--- NOTE | 2020-11-27 09:59 | P.PN ---
Subjective Date of Service: 11/27/20 Patient is a 59-year-old gentleman who came into the hospital with altered mentation. Patient has been to [place] emergency room were he was 1st diagnosed with COVID-19 pneumonia. Patient left there against medical advice. Patient also came to our emergency room in left against medical advice. His states that she is not going to pick him up because she cannot handle him at home. Patient is hypoxic and appears to be encephalopathic from the hypoxemia. Could be related to steroids as well. Will monitor him closely. Review of Systems is unable to be obtained Physical Examination - Vital Signs Temperature: 97.8 F Blood Pressure: 154/85 Pulse: 66 Respirations: 20 Pulse Ox (%): 100 - Physical Exam General: Alert, In no apparent distress, Oriented x2, Confused Respiratory: Diminished Cardiovascular: Regular rate/rhythm, Normal S1 S2, No murmurs Gastrointestinal: Normal bowel sounds, Soft and benign, Non-distended, No tenderness Musculoskeletal: No clubbing, No swelling, No tenderness Neurological: Normal speech, Normal strength at 5/5 x4 extr, Normal tone, Sensation intact, Cranial nerves 3-12 intact - Studies Medications List Reviewed: Yes Assessment & Plan - Problems (Diagnosis) (1) Altered mental status Current Visit: Yes Status: Acute (2) Acute respiratory failure with hypoxia Current Visit: No Status: Acute (3) Pneumonia due to COVID-19 virus Current Visit: No Status: Acute (4) HLD (hyperlipidemia) Current Visit: No Status: Chronic Qualifiers: Hyperlipidemia type: unspecified (5) HTN (hypertension) Current Visit: No Status: Chronic Qualifiers: Hypertension type: primary hypertension - Plan 1. Continue with IV steroids 2. Monitor inflammatory markers 3. Repeat chest x-ray 4. O2 per protocol 5. Pulmonary consultation if symptoms are not improving 6. Continue with albuterol inhaler therapy; also supportive care 7. Monitor LFTs 8. Monitor neuro status 9. GI and DVT prophylaxis Discharge Plan: Home Plan to discharge in: Greater than 2 days - Advance Directives Does patient have a Living Will: No Does patient have a Durable POA for Healthcare: No - Code Status/Comfort Care Code Status Assessed: Yes Code Status: Full Code Critical Care: No Time Spent Managing PTS Care (In Minutes): 35
[2020-11-27] MEDS: ASCORBIC ACID 500 MG TABLET PO SCH ×4 (11:13→21:52)
[2020-11-27] MEDS: VITAMIN D 1000 UNIT TAB PO SCH (11:13)
[2020-11-27] MEDS: THIAMINE HCL 100 MG TABLET PO SCH (11:14)
[2020-11-27] MEDS: FAMOTIDINE 20 MG TAB PO SCH ×2 (11:15→21:52)
[2020-11-27] MEDS: ZINC SULFATE 220 MG CAP PO SCH (11:15)
[2020-11-27] MEDS: CYANOCOBALAMIN 1000MCG/ML INJ IM SCH (11:18)
--- NOTE | 2020-11-27 13:02 | ECHO ---
HEIGHT: 6 ft 1 in WEIGHT: 200 lb 0.054 oz DATE OF STUDY: 11/27/[address]: Chilo Horn MD 2-DIMENSIONAL: YES M.MODE: YES DOPPLER: YES COLOR FLOW: YES TDS: NO PORTABLE: NO DEFINITY: NO BUBBLE STUDY: NO DIAGNOSIS: DYSPNEA CARDIAC HISTORY: CATHERIZATION: NO SURGERY: NO PROSTHETIC VALVE: NO PACEMAKER: NO MEASUREMENTS (cm) DIASTOLIC (NORMALS) SYSTOLIC (NORMALS) IVSd 1.0 (0.6-1.2) LA Diam 2.9 (1.9-4.0) LVEF 55% LVIDd 4.8 (3.5-5.7) LVIDs 3.4 (2.0-3.5) %FS 29% LVPWd 1.0 (0.6-1.2) Ao Diam 3.3 (2.0-3.7) 2 DIMENSIONAL ASSESSMENT: RIGHT ATRIUM: NORMAL LEFT ATRIUM: NORMAL RIGHT VENTRICLE: NORMAL LEFT VENTRICLE: NORMAL TRICUSPID VALVE: NORMAL MITRAL VALVE: NORMAL PULMONIC VALVE: AORTIC VALVE: NORMAL PERICARDIAL EFFUSION: NONE AORTIC ROOT: NORMAL LEFT VENTRICULAR WALL MOTION: NORMAL DOPPLER/COLOR FLOW: MILD TRICUSPID AND MITRAL REGURGITATION. COMMENTS: NORMAL LEFT VENTRICULAR EJECTION FRACTION 55-60% WITH NORMAL WALL MOTION. MILD TRICUSPID AND MITRAL REGURGITATION. TECHNOLOGIST: Quynh CHAPA
[2020-11-27] MEDS: FOLIC ACID 1 MG, MULTIVITAMINS INJ 10 ML, THIAMINE HCL 100 MG in NA CHLORIDE 0.9% 1,000 ML IV SCH (13:24)
[2020-11-27] MEDS: RIVAROXABAN 20 MG TABLET PO SCH (16:40)
[2020-11-27] MEDS ORDERED: LORazepam 2 MG/ML VIAL IV ONE (17:00)
[2020-11-27] MEDS ORDERED: ZIPRASIDONE MESYLA 20 MG/VIAL IM ONE (21:00)
[2020-11-27] MEDS ORDERED: WATER FOR INJ,STERILE 10 ML IM PRN (21:00)
[2020-11-28] MEDS: INSULIN -REGULAR HUMAN 50 UNIT/0.5 ML ML SQ SCH ×4 (07:30→20:04)
[2020-11-28] MEDS: FOLIC ACID 1 MG, MULTIVITAMINS INJ 10 ML, THIAMINE HCL 100 MG in NA CHLORIDE 0.9% 1,000 ML IV SCH (09:00)
[2020-11-28] MEDS: FAMOTIDINE 20 MG TAB PO SCH ×2 (11:17→20:04)
[2020-11-28] MEDS: ZINC SULFATE 220 MG CAP PO SCH (11:18)
[2020-11-28] MEDS: CYANOCOBALAMIN 1,000 MCG TAB SL SCH (11:18)
[2020-11-28] MEDS: THIAMINE HCL 100 MG TABLET PO SCH (11:18)
[2020-11-28] MEDS: METHYLPREDNISOLONE 125 MG INJ IV SCH ×2 (11:18→20:04)
[2020-11-28] MEDS: ASCORBIC ACID 500 MG TABLET PO SCH ×4 (11:19→20:04)
[2020-11-28] MEDS: VITAMIN D 1000 UNIT TAB PO SCH (11:19)
--- NOTE | 2020-11-28 11:44 | P.PN ---
Subjective Date of Service: 11/28/20 Chief Complaint: covid pneumonia Subjective: New changes (Staff reports patient was agitated at delirious yesterday, repeatedly trying to leave Patient more cooperative this a.m., anxious to be able to ambulate around the room, also anxious to go home Records history of alcohol use, records history of recent admission for Covid) Physical Examination - Vital Signs Temperature: 97.2 F Blood Pressure: 146/69 Pulse: 68 Respirations: 26 Pulse Ox (%): 99 - Physical Exam General: Alert, In no apparent distress, Oriented x3 HEENT: Atraumatic, Normocephalic, PERRLA Neck: Supple, 2+ carotid pulse no bruit, JVD not distended Respiratory: Normal air movement, Diminished Cardiovascular: No edema, Normal pulses, Regular rate/rhythm, Normal S1 S2 Gastrointestinal: Normal bowel sounds, Soft and benign, Non-distended Musculoskeletal: No clubbing, No swelling Neurological: Normal gait, Normal speech, Normal strength at 5/5 x4 extr, Normal tone - Studies Medications List Reviewed: Yes Assessment And Plan Plan to discharge in: 48 Hours - Code Status/Comfort Care Code Status: Full Code Physician Review: Patient Assessed, Agree with Above Assessment and Plan Physician Review Additional Text: Assessment & Plan - Problems (Diagnosis) (1) Altered mental status Current Visit: Yes Status: Acute (2) Acute respiratory failure with hypoxia Current Visit: No Status: Acute (3) Pneumonia due to COVID-19 virus Current Visit: No Status: Acute (4) HLD (hyperlipidemia) Current Visit: No Status: Chronic Qualifiers: Hyperlipidemia type: unspecified (5) HTN (hypertension) Current Visit: No Status: Chronic Qualifiers: Hypertension type: primary hypertension 6 presumed alcoholic withdrawal with delirium Plan Continue as needed Geodon for repeated agitation -Continue IV steroids -We DC IV fluids and switch banana bag to folate/multivitamin -Continue to wean O2 per protocolcurrently on 10 L nasal cannula -Continue with albuterol inhaler therapy; also supportive care -Follow daily inflammatory markersprior elevated ferritin, monitor LFTs 8. Monitor neuro status 9. GI and DVT prophylaxis Discharge Plan: Home Plan to discharge in: Greater than 2 days
[2020-11-28] MEDS ORDERED: WATER FOR INJ,STERILE 10 ML IM PRN (11:45)
[2020-11-28] MEDS ORDERED: ZIPRASIDONE MESYLA 20 MG/VIAL IM PRN (11:45)
[2020-11-28] MEDS: RIVAROXABAN 20 MG TABLET PO SCH (16:28)
[2020-11-28 18:18] LABS: Arterial Blood Carboxyhemoglob 1.3 % (0-1.5); Blood Gas Oxyhemoglobin 93.7 % (94-97); Blood O2 Saturation 95.2 % (92-98.5)
[2020-11-28] MEDS: MELATONIN 5 MG TABLET PO PRN (20:13)
[2020-11-29 04:58] LABS: Albumin 2.9 g/dL (3.4-5.0); Bilirubin Total 0.8 mg/dL (0.2-1.0); C-Reactive Protein 11.9 mg/L (<3.00); Ferritin 690.7 ng/mL (26-388); Potassium 4.7 mmol/L (3.5-5.1); Protein, Total 6.5 g/dL (6.4-8.2)
--- NOTE | 2020-11-29 06:28 | P.PN ---
Subjective Date of Service: 11/29/20 Chief Complaint: covid pneumonia Subjective: Improving, Other (Patient improved. Currently on 10 L. At bedside sitting.) Physical Examination - Vital Signs Temperature: 97.5 F Blood Pressure: 149/88 Pulse: 79 Respirations: 22 Pulse Ox (%): 92 - Studies Medications List Reviewed: Yes Assessment & Plan Discharge Plan: Home Plan to discharge in: 48 Hours Physician Review Additional Text: Covid: Positive, unvaccinated CT head: COMPARISON: No comparisons TECHNIQUE: Axial 5 mm thick images of the head were obtained without IV contrast. All CT scans are performed using dose optimization technique as appropriate and may include automated exposure control or mA/KV adjustment according to patient size. FINDINGS: No intracranial hemorrhage, mass, edema or shift of mid-line structures. No acute infarction changes seen. No abnormal extra-axial fluid collections. Ventricles are normal. No significant atrophy or chronic ischemic change. Mastoid air cells and visualized portions of the paranasal sinuses are clear. No acute bony findings. IMPRESSION: Negative non-contrast CT head examination for acute or significant finding. Echocardiogram: MEASUREMENTS (cm) DIASTOLIC (NORMALS) SYSTOLIC (NORMALS) IVSd 1.0 (0.6-1.2) LA Diam 2.9 (1.9-4.0) LVEF 55% LVIDd 4.8 (3.5-5.7) LVIDs 3.4 (2.0-3.5) %FS 29% LVPWd 1.0 (0.6-1.2) Ao Diam 3.3 (2.0-3.7) 2 DIMENSIONAL ASSESSMENT: RIGHT ATRIUM: NORMAL LEFT ATRIUM: NORMAL RIGHT VENTRICLE: NORMAL LEFT VENTRICLE: NORMAL TRICUSPID VALVE: NORMAL MITRAL VALVE: NORMAL PULMONIC VALVE: AORTIC VALVE: NORMAL PERICARDIAL EFFUSION: NONE AORTIC ROOT: NORMAL LEFT VENTRICULAR WALL MOTION: NORMAL DOPPLER/COLOR FLOW: MILD TRICUSPID AND MITRAL REGURGITATION. COMMENTS: NORMAL LEFT VENTRICULAR EJECTION FRACTION 55-60% WITH NORMAL WALL MOTION. MILD TRICUSPID AND MITRAL REGURGITATION. Chest x-ray: COMPARISON: Chest Single View dated 11/24/2020; Chest For Pe Angio dated 11/24/2020 FINDINGS: Ill-defined bilateral airspace disease, worse at the left lung base. The right lung looks marginally better aerated. The heart size is within normal limits.No acute osseous abnormality. No significant pleural effusions or pneumothorax. IMPRESSION: Patchy multifocal pneumonia with some marginal improvement in the right lung. Physical exam: General: Alert, In no apparent distress, Oriented x2, Confused Respiratory: Diminished Cardiovascular: Regular rate/rhythm, Normal S1 S2, No murmurs Gastrointestinal: Normal bowel sounds, Soft and benign, Non-distended, No tenderness Musculoskeletal: No clubbing, No swelling, No tenderness Neurological: Normal speech, Normal strength at 5/5 x4 extr, Normal tone, Sensation intact, Cranial nerves 3-12 intact Impression: Dyspnea secondary to acute respiratory failure with hypoxia related to bilateral Covid pneumonia Acute encephalopathy suspect alcohol withdrawal with delirium Hypertension Hyperlipidemia Alcohol abuse Plan: Patient continues to improve. Continue IV steroids and supplementation. Will monitor closely. Continue to wean off oxygen. Encourage ambulation, incentive spirometer and proning. We will monitor for alcohol withdrawal. Patient seems to be appropriate at this time. Will provide thiamine. Geodon added as needed. Await recommendations from pulmonology. CT head unremarkable. Echocardiogram unremarkable. Restart Vasotec. Parameters in place. Restart statin medication. Continue with home medications. Anticipate improvement over the next 48 hours. CODE STATUS: Full code DVT prophylaxis: Xarelto Advance care [id number] minutes: Home at discharge Time Spent Managing Pts Care (In Minutes): 55
[2020-11-29] MEDS: INSULIN -REGULAR HUMAN 50 UNIT/0.5 ML ML SQ SCH ×4 (07:30→21:00)
[2020-11-29] MEDS: CYANOCOBALAMIN 1,000 MCG TAB SL SCH (09:21)
[2020-11-29] MEDS: VITAMIN D 1000 UNIT TAB PO SCH (09:21)
[2020-11-29] MEDS: FOLIC ACID 1 MG TABLET PO SCH (09:21)
[2020-11-29] MEDS: ZINC SULFATE 220 MG CAP PO SCH (09:22)
[2020-11-29] MEDS: FAMOTIDINE 20 MG TAB PO SCH ×2 (09:22→21:01)
[2020-11-29] MEDS: THIAMINE HCL 100 MG TABLET PO SCH (09:22)
[2020-11-29] MEDS: ASCORBIC ACID 500 MG TABLET PO SCH ×4 (09:22→21:01)
[2020-11-29] MEDS: METHYLPREDNISOLONE 125 MG INJ IV SCH (09:22)
[2020-11-29] MEDS: RIVAROXABAN 20 MG TABLET PO SCH (16:32)
[2020-11-29] MEDS: METHYLPREDNISOLONE 40 MG INJ IV SCH (21:01)
[2020-11-29] MEDS: MELATONIN 5 MG TABLET PO PRN (21:01)
[2020-11-29] MEDS: ATORVASTATIN 20 MG TAB PO SCH (21:01)
[2020-11-30 05:50] LABS: Absolute Lymphocytes (CBC) 0.5 K/uL (0.7-4.9); Basophils % 0.4 % (0-1.3); Hematocrit 32.4 % (39.6-49.0); Lymphocytes % 4.5 % (15.3-44.8); MPV 8.8 fL (7.6-11.3); RBC Red Blood Cell Count 3.02 M/uL (4.33-5.43)
[2020-11-30 06:08] LABS: Albumin 2.6 g/dL (3.4-5.0); Bilirubin Total 0.8 mg/dL (0.2-1.0); C-Reactive Protein 5.81 mg/L (<3.00); Ferritin 599.4 ng/mL (26-388); Magnesium 2.7 mg/dL (1.8-2.4); Potassium 4.5 mmol/L (3.5-5.1); Protein, Total 6.1 g/dL (6.4-8.2)
--- NOTE | 2020-11-30 07:10 | RAD REPORT ---
EXAM DESCRIPTION: RAD - Chest Single View - 11/30/2020 5:08 am CLINICAL HISTORY: Follow-up Covid COMPARISON: Chest Single View dated 11/26/2020; Chest Single View dated 11/24/2020 FINDINGS: Bilateral patchy multifocal airspace disease without substantial change compared with 11/15. The heart size is within normal limits.No acute osseous abnormality. No significant pleural e ffusions or pneumothorax. IMPRESSION: No significant change in aeration lungs with patchy bilateral airspace disease consisten t with multifocal pneumonia.
[2020-11-30] MEDS: INSULIN -REGULAR HUMAN 50 UNIT/0.5 ML ML SQ SCH ×4 (07:30→20:23)
[2020-11-30] MEDS: VITAMIN D 1000 UNIT TAB PO SCH (09:03)
[2020-11-30] MEDS: THIAMINE HCL 100 MG TABLET PO SCH (09:04)
[2020-11-30] MEDS: FOLIC ACID 1 MG TABLET PO SCH (09:04)
[2020-11-30] MEDS: ASCORBIC ACID 500 MG TABLET PO SCH ×4 (09:04→20:22)
[2020-11-30] MEDS: CYANOCOBALAMIN 1,000 MCG TAB SL SCH (09:04)
[2020-11-30] MEDS: ENALAPRIL 10 MG TAB PO SCH (09:05)
[2020-11-30] MEDS: ZINC SULFATE 220 MG CAP PO SCH (09:05)
[2020-11-30] MEDS: METHYLPREDNISOLONE 40 MG INJ IV SCH ×2 (09:05→20:23)
[2020-11-30] MEDS: FAMOTIDINE 20 MG TAB PO SCH ×2 (09:06→20:21)
[2020-11-30 09:44] LABS: Anisocytosis 1+; Blood Morphology Comment NOTED (NOT SEEN); Macrocytosis 1+; Platelet Estimate DECR
[2020-11-30 09:45] LABS: Poikilocytosis 1+
--- NOTE | 2020-11-30 11:22 | P.PN ---
Subjective Date of Service: 11/30/20 Chief Complaint: covid pneumonia Subjective: Other (Patient requiring more oxygen this morning. Currently on 10 L. Patient reports improvement) Physical Examination - Vital Signs Temperature: 97.6 F Blood Pressure: 136/74 Pulse: 75 Respirations: 20 Pulse Ox (%): 93 - Studies Medications List Reviewed: Yes Assessment & Plan Discharge Plan: Home Plan to discharge in: 72 Hours Physician Review Additional Text: Covid: Positive, unvaccinated CT head: COMPARISON: No comparisons TECHNIQUE: Axial 5 mm thick images of the head were obtained without IV contrast. All CT scans are performed using dose optimization technique as appropriate and may include automated exposure control or mA/KV adjustment according to patient size. FINDINGS: No intracranial hemorrhage, mass, edema or shift of mid-line structures. No acute infarction changes seen. No abnormal extra-axial fluid collections. Ventricles are normal. No significant atrophy or chronic ischemic change. Mastoid air cells and visualized portions of the paranasal sinuses are clear. No acute bony findings. IMPRESSION: Negative non-contrast CT head examination for acute or significant finding. Echocardiogram: MEASUREMENTS (cm) DIASTOLIC (NORMALS) SYSTOLIC (NORMALS) IVSd 1.0 (0.6-1.2) LA Diam 2.9 (1.9-4.0) LVEF 55% LVIDd 4.8 (3.5-5.7) LVIDs 3.4 (2.0-3.5) %FS 29% LVPWd 1.0 (0.6-1.2) Ao Diam 3.3 (2.0-3.7) 2 DIMENSIONAL ASSESSMENT: RIGHT ATRIUM: NORMAL LEFT ATRIUM: NORMAL RIGHT VENTRICLE: NORMAL LEFT VENTRICLE: NORMAL TRICUSPID VALVE: NORMAL MITRAL VALVE: NORMAL PULMONIC VALVE: AORTIC VALVE: NORMAL PERICARDIAL EFFUSION: NONE AORTIC ROOT: NORMAL LEFT VENTRICULAR WALL MOTION: NORMAL DOPPLER/COLOR FLOW: MILD TRICUSPID AND MITRAL REGURGITATION. COMMENTS: NORMAL LEFT VENTRICULAR EJECTION FRACTION 55-60% WITH NORMAL WALL MOTION. MILD TRICUSPID AND MITRAL REGURGITATION. Follow-up chest x-ray 11/30/2020: COMPARISON: Chest Single View dated 11/26/2020; Chest Single View dated 11/24/2020 FINDINGS: Bilateral patchy multifocal airspace disease without substantial change compared with 11/26/2020. The heart size is within normal limits.No acute osseous abnormality. No significant pleural effusions or pneumothorax. IMPRESSION: No significant change in aeration lungs with patchy bilateral airspace disease consistent with multifocal pneumonia. Physical exam: General: Alert, In no apparent distress, Oriented x2, Confused Respiratory: Clear. Currently on 10 L per nasal cannula Cardiovascular: Regular rate/rhythm, Normal S1 S2, No murmurs Gastrointestinal: Normal bowel sounds, Soft and benign, Non-distended, No tenderness Musculoskeletal: No clubbing, No swelling, No tenderness Neurological: Normal speech, Normal strength at 5/5 x4 extr, Normal tone, Sensation intact, Cranial nerves 3-12 intact Impression: Dyspnea secondary to acute respiratory failure with hypoxia related to bilateral Covid pneumonia Acute encephalopathy suspect alcohol withdrawal with delirium Hypertension Hyperlipidemia Alcohol abuse Plan: Dyspnea secondary to acute respiratory failure with hypoxia related to bilateral Covid pneumonia: Patient reports some improvement. Patient remains on IV steroids and supplementation. CRP and ferritin improved. Currently on 10 L per nasal cannula. Continue to wean off oxygen to maintain sats above 93%. Chest x-ray shows no change. Encourage ambulation, proning, incentive spirometer. Continue to monitor lab closely. Continue with pulmonology recommendations. Will monitor closely. Anticipate improvement over the next 48 to 72 hours. Acute encephalopathy suspect alcohol withdrawal with delirium: This appears resolved. Geodon as needed. Continue with thiamine and folic acid. Hypertension: Continue with enalapril 5 mg daily. Will monitor and adjust appropriately. Hyperlipidemia: Continue Lipitor 20 mg daily. Alcohol abuse: Continue with thiamine and folic acid. CODE STATUS: Full code DVT prophylaxis: Xarelto Advance care [id number] minutes: Home at discharge Time Spent Managing Pts Care (In Minutes): 55
[2020-11-30] MEDS: RIVAROXABAN 20 MG TABLET PO SCH (16:37)
[2020-11-30] MEDS: ATORVASTATIN 20 MG TAB PO SCH (20:22)
[2020-12-01 04:44] LABS: Absolute Lymphocytes (CBC) 0.4 K/uL (0.7-4.9); Basophils % 0.1 % (0-1.3); Hematocrit 32.3 % (39.6-49.0); Lymphocytes % 3.1 % (15.3-44.8); MPV 9.7 fL (7.6-11.3); RBC Red Blood Cell Count 3.01 M/uL (4.33-5.43)
[2020-12-01 05:05] LABS: Albumin 2.6 g/dL (3.4-5.0); Bilirubin Total 0.7 mg/dL (0.2-1.0); C-Reactive Protein 4.68 mg/L (<3.00); Ferritin 503.9 ng/mL (26-388); Magnesium 2.5 mg/dL (1.8-2.4); Protein, Total 5.9 g/dL (6.4-8.2)
--- NOTE | 2020-12-01 06:17 | P.PN ---
Subjective Date of Service: 12/01/20 Chief Complaint: covid pneumonia Subjective: Other (Reports improvement. Currently stable on 12 L.) Physical Examination - Vital Signs Temperature: 97.9 F Blood Pressure: 139/82 Pulse: 63 Respirations: 18 Pulse Ox (%): 91 - Studies Medications List Reviewed: Yes Assessment & Plan Discharge Plan: LTAC Plan to discharge in: 48 Hours Physician Review Additional Text: Covid: Positive, unvaccinated CT head: COMPARISON: No comparisons TECHNIQUE: Axial 5 mm thick images of the head were obtained without IV contr ast. All CT scans are performed using dose optimization technique as appropriate and may include automated exposure control or mA/KV adjustment according to patient size. FINDINGS: No intracranial hemorrhage, mass, edema or shift of mid-line structures. No acute infarction changes seen. No abnormal extra-axial fluid collections. Ventricles are normal. No significant atrophy or chronic ischemic change. Mastoid air cells and visualized portions of the paranasal sinuses are clear. No acute bony findings. IMPRESSION: Negative non-contrast CT head examination for acute or significant finding. Echocardiogram: MEASUREMENTS (cm) DIASTOLIC (NORMALS) SYSTOLIC (NORMALS) IVSd 1.0 (0.6-1.2) LA Diam 2.9 (1.9-4.0) LVEF 55% LVIDd 4.8 (3.5-5.7) LVIDs 3.4 (2.0-3.5) %FS 29% LVPWd 1.0 (0.6-1.2) Ao Diam 3.3 (2.0-3.7) 2 DIMENSIONAL ASSESSMENT: RIGHT ATRIUM: NORMAL LEFT ATRIUM: NORMAL RIGHT VENTRICLE: NORMAL LEFT VENTRICLE: NORMAL TRICUSPID VALVE: NORMAL MITRAL VALVE: NORMAL PULMONIC VALVE: AORTIC VALVE: NORMAL PERICARDIAL EFFUSION: NONE AORTIC ROOT: NORMAL LEFT VENTRICULAR WALL MOTION: NORMAL DOPPLER/COLOR FLOW: MILD TRICUSPID AND MITRAL REGURGITATION. COMMENTS: NORMAL LEFT VENTRICULAR EJECTION FRACTION 55-60% WITH NORMAL WALL MOTION. MILD TRICUSPID AND MITRAL REGURGITATION. Follow-up chest x-ray 11/30/2020: COMPARISON: Chest Single View dated 11/26/2020; Chest Single View dated 11/24/2020 FINDINGS: Bilateral patchy multifocal airspace disease without substantial change compared with 11/26/2020. The heart size is within normal limits.No acute osseous abnormality. No significant pleural effusions or pneumothorax. IMPRESSION: No significant change in aeration lungs with patchy bilateral airspace disease consistent with multifocal pneumonia. Physical exam: General: Alert, In no apparent distress, Oriented x2, no confusion noted. Some anxiety Respiratory: Clear. Currently stable on 12 L. Cardiovascular: Regular rate/rhythm, Normal S1 S2, No murmurs Gastrointestinal: Normal bowel sounds, Soft and benign, Non-distended, No tenderness Musculoskeletal: No clubbing, No swelling, No tenderness Neurological: Normal speech, Normal strength at 5/5 x4 extr, Normal tone, Sensation intact, Cranial nerves 3-12 intact Impression: Dyspnea secondary to acute respiratory failure with hypoxia related to bilateral Covid pneumonia Acute encephalopathy suspect alcohol withdrawal with delirium Hypertension Hyperlipidemia Alcohol abuse Leukocytosis Plan: Dyspnea secondary to acute respiratory failure with hypoxia related to bilateral Covid pneumonia: Patient reports some improvement. Currently stable on 12 L per nasal cannula. IV steroids decreased. Continue with IV steroids and vitamin supplementation. Continue to wean off oxygen to maintain sats above 93%. Encourage ambulation, proning, incentive spirometer. Discussed the possibility of sending patient to long-term acute facility placement for further treatment and rehabilitation. Patient in agreement. Will discuss with child protective services social worker to help with this. Acute encephalopathy suspect alcohol withdrawal with delirium: This appears resolved. Patient appears to be back to his baseline. Some anxiety noted. Geodon provided as needed. Will start Xanax as needed. Continue with thiamine and folic acid. Hypertension: Continue with enalapril 5 mg daily. Will monitor and adjust appropriately. Hyperlipidemia: Continue Lipitor 20 mg daily. Alcohol abuse: Continue with thiamine and folic acid. Leukocytosis: Likely from steroids. Will monitor closely. Steroid decreased. CODE STATUS: Full code DVT prophylaxis: Xarelto [facility] [id number] minutes: Home at discharge Time Spent Managing Pts Care (In Minutes): 55
[2020-12-01] MEDS: INSULIN -REGULAR HUMAN 50 UNIT/0.5 ML ML SQ SCH ×4 (07:30→20:38)
[2020-12-01] MEDS: CYANOCOBALAMIN 1,000 MCG TAB SL SCH (09:15)
[2020-12-01] MEDS: ZINC SULFATE 220 MG CAP PO SCH (09:15)
[2020-12-01] MEDS: FOLIC ACID 1 MG TABLET PO SCH (09:15)
[2020-12-01] MEDS: METHYLPREDNISOLONE 40 MG INJ IV SCH ×2 (09:15→20:14)
[2020-12-01] MEDS: ASCORBIC ACID 500 MG TABLET PO SCH ×4 (09:15→20:14)
[2020-12-01] MEDS: VITAMIN D 1000 UNIT TAB PO SCH (09:16)
[2020-12-01] MEDS: FAMOTIDINE 20 MG TAB PO SCH ×2 (09:16→20:14)
[2020-12-01] MEDS: ENALAPRIL 10 MG TAB PO SCH (09:17)
[2020-12-01] MEDS: THIAMINE HCL 100 MG TABLET PO SCH (09:17)
[2020-12-01] MEDS ORDERED: ALPRAZOLAM 0.25 MG TABLET PO PRN (11:37)
[2020-12-01] MEDS: RIVAROXABAN 20 MG TABLET PO SCH (16:37)
[2020-12-01] MEDS: BENZONATATE 100 MG CAP PO PRN (20:14)
[2020-12-01] MEDS: ATORVASTATIN 20 MG TAB PO SCH (20:14)
[2020-12-01] MEDS: MELATONIN 5 MG TABLET PO PRN (20:15)
[2020-12-02 04:41] LABS: Absolute Lymphocytes (CBC) 0.3 K/uL (0.7-4.9); Basophils % 0.2 % (0-1.3); Lymphocytes % 2.2 % (15.3-44.8); RBC Red Blood Cell Count 2.89 M/uL (4.33-5.43)
[2020-12-02 05:01] LABS: Albumin 2.3 g/dL (3.4-5.0); Bilirubin Total 0.6 mg/dL (0.2-1.0); C-Reactive Protein 4.99 mg/L (<3.00); Ferritin 422.7 ng/mL (26-388); Magnesium 2.5 mg/dL (1.8-2.4); Potassium 5.4 mmol/L (3.5-5.1); Protein, Total 5.5 g/dL (6.4-8.2)
--- NOTE | 2020-12-02 06:22 | P.PN ---
Subjective Date of Service: 12/02/20 Chief Complaint: covid pneumonia Subjective: Doing well Physical Examination - Vital Signs Temperature: 97.9 F Blood Pressure: 131/65 Pulse: 55 Respirations: 17 Pulse Ox (%): 95 - Studies Medications List Reviewed: Yes Assessment & Plan Discharge Plan: LTAC Plan to discharge in: 48 Hours Physician Review Additional Text: Covid: Positive, unvaccinated CT head: COMPARISON: No comparisons TECHNIQUE: Axial 5 mm thick images of the head were obtained without IV contrast. All CT scans are performed using dose optimization technique as appropriate and may include automated exposure control or mA/KV adjustment according to patient size. FINDINGS: No intracranial hemorrhage, mass, edema or shift of mid-line structures. No acute infarction changes seen. No abnormal extra-axial fluid collections. Ventricles are normal. No significant atrophy or chronic ischemic change. Mastoid air cells and visualized portions of the paranasal sinuses are clear. No acute bony findings. IMPRESSION: Negative non-contrast CT head examination for acute or significant finding. Echocardiogram: MEASUREMENTS (cm) DIASTOLIC (NORMALS) SYSTOLIC (NORMALS) IVSd 1.0 (0.6-1.2) LA Diam 2.9 (1.9-4.0) LVEF 55% LVIDd 4.8 (3.5-5.7) LVIDs 3.4 (2.0-3.5) %FS 29% LVPWd 1.0 (0.6-1.2) Ao Diam 3.3 (2.0-3.7) 2 DIMENSIONAL ASSESSMENT: RIGHT ATRIUM: NORMAL LEFT ATRIUM: NORMAL RIGHT VENTRICLE: NORMAL LEFT VENTRICLE: NORMAL TRICUSPID VALVE: NORMAL MITRAL VALVE: NORMAL PULMONIC VALVE: AORTIC VALVE: NORMAL PERICARDIAL EFFUSION: NONE AORTIC ROOT: NORMAL LEFT VENTRICULAR WALL MOTION: NORMAL DOPPLER/COLOR FLOW: MILD TRICUSPID AND MITRAL REGURGITATION. COMMENTS: NORMAL LEFT VENTRICULAR EJECTION FRACTION 55-60% WITH NORMAL WALL MOTION. MILD TRICUSPID AND MITRAL REGURGITATION. Follow-up chest x-ray 11/30/2020: COMPARISON: Chest Single View dated 11/26/2020; Chest Single View dated 11/24/2020 FINDINGS: Bilateral patchy multifocal airspace disease without substantial change compared with 11/26/2020. The heart size is within normal limits.No acute osseous abnormality. No significant pleural effusions or pneumothorax. IMPRESSION: No significant change in aeration lungs with patchy bilateral airspace disease consistent with multifocal pneumonia. Physical exam: General: Alert, In no apparent distress, Oriented x2, no confusion noted. Some anxiety Respiratory: Clear. Currently stable on 12 L. Cardiovascular: Regular rate/rhythm, Normal S1 S2, No murmurs Gastrointestinal: Normal bowel sounds, Soft and benign, Non-distended, No tenderness Musculoskeletal: No clubbing, No swelling, No tenderness Neurological: Normal speech, Normal strength at 5/5 x4 extr, Normal tone, Sensation intact, Cranial nerves 3-12 intact Impression: Dyspnea secondary to acute respiratory failure with hypoxia related to bilateral Covid pneumonia Acute encephalopathy suspect alcohol withdrawal with delirium Hypertension Hyperlipidemia Alcohol abuse Leukocytosis Plan: Dyspnea secondary to acute respiratory failure with hypoxia related to bilateral Covid pneumonia: Patient reports some improvement. Currently stable on 12 L per nasal cannula. Continue with IV steroids. Continue with IV steroids and vitamin supplementation. Continue to wean off oxygen to maintain sats above 93%. Encourage ambulation, proning, incentive spirometer. Discussed the possibility of sending patient to long-term acute facility placement for further treatment and rehabilitation. Patient in agreement. Will discuss with social research assistant to help with this. Acute encephalopathy suspect alcohol withdrawal with delirium: This appears resolved. Patient appears to be back to his baseline. Some anxiety noted. Geodon provided as needed. Will start Xanax as needed. Continue with thiamine and folic acid. Hypertension: Continue with enalapril 5 mg daily. Will monitor and adjust appropriately. Hyperlipidemia: Continue Lipitor 20 mg daily. Alcohol abuse: Continue with thiamine and folic acid. Leukocytosis: Likely from steroids. Will monitor closely. Steroid decreased. CODE STATUS: Full code DVT prophylaxis: Xarelto [facility] [id number] minutes: LTAC Time Spent Managing Pts Care (In Minutes): 55
[2020-12-02] MEDS: INSULIN -REGULAR HUMAN 50 UNIT/0.5 ML ML SQ SCH ×4 (07:30→21:00)
--- NOTE | 2020-12-02 07:41 | RAD REPORT ---
EXAM DESCRIPTION: RAD - Chest Single View - 12/02/2020 5:07 am CLINICAL HISTORY: Follow-up Covid COMPARISON: Chest Single View dated 11/30/2020; Chest Single View dated 11/26/2020; Chest Single View dated 11/24/2020 FINDINGS: Similar moderate bilateral airspace disease. The heart size is within normal limits.No acu te osseous abnormality. No significant pleural effusions or pneumothorax. IMPRESSION: No significant change in moderate bilateral airspace disease consistent with multifocal pneumonia.
[2020-12-02] MEDS: ZINC SULFATE 220 MG CAP PO SCH (08:53)
[2020-12-02] MEDS: FAMOTIDINE 20 MG TAB PO SCH ×2 (08:53→19:29)
[2020-12-02] MEDS: VITAMIN D 1000 UNIT TAB PO SCH (08:53)
[2020-12-02] MEDS: CYANOCOBALAMIN 1,000 MCG TAB SL SCH (08:53)
[2020-12-02] MEDS: FOLIC ACID 1 MG TABLET PO SCH (08:53)
[2020-12-02] MEDS: ENALAPRIL 10 MG TAB PO SCH (08:54)
[2020-12-02] MEDS: ASCORBIC ACID 500 MG TABLET PO SCH ×4 (08:54→19:29)
[2020-12-02] MEDS: METHYLPREDNISOLONE 40 MG INJ IV SCH ×2 (08:54→19:29)
[2020-12-02] MEDS: THIAMINE HCL 100 MG TABLET PO SCH (08:55)
[2020-12-02] MEDS: BENZONATATE 100 MG CAP PO PRN (09:07)
[2020-12-02] MEDS: RIVAROXABAN 20 MG TABLET PO SCH (16:10)
[2020-12-02] MEDS: ATORVASTATIN 20 MG TAB PO SCH (19:29)
[2020-12-03 04:18] LABS: Absolute Lymphocytes (CBC) 0.3 K/uL (0.7-4.9); Basophils % 0.1 % (0-1.3); Hematocrit 32.4 % (39.6-49.0); Lymphocytes % 1.5 % (15.3-44.8); MPV 10.6 fL (7.6-11.3); RBC Red Blood Cell Count 3.03 M/uL (4.33-5.43)
[2020-12-03 05:18] LABS: Albumin 2.4 g/dL (3.4-5.0); Bilirubin Total 0.5 mg/dL (0.2-1.0); C-Reactive Protein 3.87 mg/L (<3.00); Ferritin 443.2 ng/mL (26-388); Protein, Total 5.8 g/dL (6.4-8.2)
[2020-12-03 05:27] LABS: Magnesium 2.4 mg/dL (1.8-2.4); Potassium 4.6 mmol/L (3.5-5.1)
[2020-12-03] MEDS ORDERED: FLUCONAZOLE 100mg IVPB 100 MG/50 ML BAG IV SCH ×2 (07:00→08:00)
[2020-12-03] MEDS: INSULIN -REGULAR HUMAN 50 UNIT/0.5 ML ML SQ SCH ×4 (07:30→21:00)
[2020-12-03] MEDS: VITAMIN D 1000 UNIT TAB PO SCH (08:09)
[2020-12-03] MEDS: ENALAPRIL 10 MG TAB PO SCH (08:10)
[2020-12-03] MEDS: ASCORBIC ACID 500 MG TABLET PO SCH ×4 (08:10→19:33)
[2020-12-03] MEDS: CYANOCOBALAMIN 1,000 MCG TAB SL SCH (08:10)
[2020-12-03] MEDS: ZINC SULFATE 220 MG CAP PO SCH (08:10)
[2020-12-03] MEDS: CEFTRIAXONE/SWI 1gm 1 GM/10 ML SYR IV SCH (08:10)
[2020-12-03] MEDS: THIAMINE HCL 100 MG TABLET PO SCH (08:10)
[2020-12-03] MEDS: METHYLPREDNISOLONE 40 MG INJ IV SCH ×2 (08:11→19:33)
[2020-12-03] MEDS: FAMOTIDINE 20 MG TAB PO SCH ×2 (08:11→19:33)
[2020-12-03] MEDS: FOLIC ACID 1 MG TABLET PO SCH (08:17)
[2020-12-03] MEDS ORDERED: CEFTRIAXONE 1 GM/NS 50 ML 1 GM/50 ML BAG IV SCH (09:00)
[2020-12-03] MEDS: RIVAROXABAN 20 MG TABLET PO SCH (16:05)
--- NOTE | 2020-12-03 17:02 | P.PN ---
Subjective Date of Service: 12/03/20 Chief Complaint: covid pneumonia Subjective: Improving Physical Examination - Vital Signs Temperature: 98.0 F Blood Pressure: 122/64 Pulse: 73 Respirations: 20 Pulse Ox (%): 95 - Studies Medications List Reviewed: Yes Assessment & Plan Discharge Plan: LTAC Plan to discharge in: 48 Hours Physician Review Additional Text: Covid: Positive, unvaccinated CT head: COMPARISON: No comparisons TECHNIQUE: Axial 5 mm thick images of the head were obtained without IV contrast. All CT scans are performed using dose optimization technique as appropriate and may include automated exposure control or mA/KV adjustment according to patient size. FINDINGS: No intracranial hemorrhage, mass, edema or shift of mid-line s tructures. No acute infarction changes seen. No abnormal extra-axial fluid collections. Ventricles are normal. No significant atrophy or chronic ischemic change. Mastoid air cells and visualized portions of the paranasal sinuses are clear. No acute bony findings. IMPRESSION: Negative non-contrast CT head examination for acute or significant finding. Echocardiogram: MEASUREMENTS (cm) DIASTOLIC (NORMALS) SYSTOLIC (NORMALS) IVSd 1.0 (0.6-1.2) LA Diam 2.9 (1.9-4.0) LVEF 55% LVIDd 4.8 (3.5-5.7) LVIDs 3.4 (2.0-3.5) %FS 29% LVPWd 1.0 (0.6-1.2) Ao Diam 3.3 (2.0-3.7) 2 DIMENSIONAL ASSESSMENT: RIGHT ATRIUM: NORMAL LEFT ATRIUM: NORMAL RIGHT VENTRICLE: NORMAL LEFT VENTRICLE: NORMAL TRICUSPID VALVE: NORMAL MITRAL VALVE: NORMAL PULMONIC VALVE: AORTIC VALVE: NORMAL PERICARDIAL EFFUSION: NONE AORTIC ROOT: NORMAL LEFT VENTRICULAR WALL MOTION: NORMAL DOPPLER/COLOR FLOW: MILD TRICUSPID AND MITRAL REGURGITATION. COMMENTS: NORMAL LEFT VENTRICULAR EJECTION FRACTION 55-60% WITH NORMAL WALL MOTION. MILD TRICUSPID AND MITRAL REGURGITATION. Follow-up chest x-ray 11/30/2020: COMPARISON: Chest Single View dated 11/26/2020; Chest Single View dated 11/24/2020 FINDINGS: Bilateral patchy multifocal airspace disease without substantial change compared with 11/26/2020. The heart size is within normal limits.No acute osseous abnormality. No significant pleural effusions or pneumothorax. IMPRESSION: No significant change in aeration lungs with patchy bilateral airspace disease consistent with multifocal pneumonia. Physical exam: General: Alert, In no apparent distress, Oriented x2, no confusion noted. Some anxiety Respiratory: Clear. Currently stable on 10 L. Cardiovascular: Regular rate/rhythm, Normal S1 S2, No murmurs Gastrointestinal: Normal bowel sounds, Soft and benign, Non-distended, No tenderness Musculoskeletal: No clubbing, No swelling, No tenderness Neurological: Normal speech, Normal strength at 5/5 x4 extr, Normal tone, Sensation intact, Cranial nerves 3-12 intact Impression: Dyspnea secondary to acute respiratory failure with hypoxia related to bilateral Covid pneumonia Acute encephalopathy suspect alcohol withdrawal with delirium Hypertension Hyperlipidemia Alcohol abuse Leukocytosis Plan: Dyspnea secondary to acute respiratory failure with hypoxia related to bilateral Covid pneumonia: Patient reports some improvement. Currently stable on 10 L per nasal cannula. Continue with IV steroids. Continue with IV steroids and vitamin supplementation. Continue to wean off oxygen to maintain sats above 93%. Encourage ambulation, proning, incentive spirometer. Discussed the possibility of sending patient to long-term acute facility placement for further treatment and rehabilitation. Patient in agreement. Will discuss with social media content manager to help with this. Acute encephalopathy suspect alcohol withdrawal with delirium: This appears resolved. Patient appears to be back to his baseline. Some anxiety noted. Geodon provided as needed. Will start Xanax as needed. Continue with thiamine and folic acid. Hypertension: Continue with enalapril 5 mg daily. Will monitor and adjust appropriately. Hyperlipidemia: Continue Lipitor 20 mg daily. Alcohol abuse: Continue with thiamine and folic acid. Leukocytosis: Likely from steroids. Will monitor closely. Steroid decreased. Rocephin and Diflucan started. CODE STATUS: Full code DVT prophylaxis: Xarelto [facility] [id number] minutes: LTAC Time Spent Managing Pts Care (In Minutes): 55
[2020-12-03] MEDS: ATORVASTATIN 20 MG TAB PO SCH (19:33)
--- NOTE | 2020-12-04 06:29 | P.PN ---
Subjective Date of Service: 12/04/20 Chief Complaint: covid pneumonia Subjective: Other (Stable on HF) Physical Examination - Vital Signs Temperature: 97.8 F Blood Pressure: 151/64 Pulse: 66 Respirations: 26 Pulse Ox (%): 85 - Studies Medications List Reviewed: Yes Assessment & Plan Discharge Plan: LTAC Plan to discharge in: 48 Hours Physician Review Additional Text: Covid: Positive, unvaccinated CT head: COMPARISON: No comparisons TECHNIQUE: Axial 5 mm thick images of the head were obtained without IV contrast. All CT scans are performed using dose optimization technique as appropriate and may include automated exposure control or mA/KV adjustment according to patient size. FINDINGS: No intracranial hemorrhage, mass, edema or shift of mid-line structures. No acute infarction changes seen. No abnormal extra-axial fluid collections. Ventricles are normal. No significant atrophy or chronic ischemic change. Mastoid air cells and visualized portions of the paranasal sinuses are clear. No acute bony findings. IMPRESSION: Negative non-contrast CT head examination for acute or significant finding. Echocardiogram: MEASUREMENTS (cm) DIASTOLIC (NORMALS) SYSTOLIC (NORMALS) IVSd 1.0 (0.6-1.2) LA Diam 2.9 (1.9-4.0) LVEF 55% LVIDd 4.8 (3.5-5.7) LVIDs 3.4 (2.0-3.5) %FS 29% LVPWd 1.0 (0.6-1.2) Ao Diam 3.3 (2.0-3.7) 2 DIMENSIONAL ASSESSMENT: RIGHT ATRIUM: NORMAL LEFT ATRIUM: NORMAL RIGHT VENTRICLE: NORMAL LEFT VENTRICLE: NORMAL TRICUSPID VALVE: NORMAL MITRAL VALVE: NORMAL PULMONIC VALVE: AORTIC VALVE: NORMAL PERICARDIAL EFFUSION: NONE AORTIC ROOT: NORMAL LEFT VENTRICULAR WALL MOTION: NORMAL DOPPLER/COLOR FLOW: MILD TRICUSPID AND MITRAL REGURGITATION. COMMENTS: NORMAL LEFT VENTRICULAR EJECTION FRACTION 55-60% WITH NORMAL WALL MOTION. MILD TRICUSPID AND MITRAL REGURGITATION. Follow-up chest x-ray 11/30/2020: COMPARISON: Chest Single View dated 11/26/2020; Chest Single View dated 11/24/2020 FINDINGS: Bilateral patchy multifocal airspace disease without substantial change compared with 11/26/2020. The heart size is within normal limits.No acute osseous abnormality. No significant pleural effusions or pneumothorax. IMPRESSION: No significant change in aeration lungs with patchy bilateral airspace disease consistent with multifocal pneumonia. Physical exam: General: Alert, In no apparent distress, Oriented x2, no confusion noted. Some anxiety Respiratory: Clear. Currently on HF 90 Cardiovascular: Regular rate/rhythm, Normal S1 S2, No murmurs Gastrointestinal: Normal bowel sounds, Soft and benign, Non-distended, No tenderness Musculoskeletal: No clubbing, No swelling, No tenderness Neurological: Normal speech, Normal strength at 5/5 x4 extr, Normal tone, Sensation intact, Cranial nerves 3-12 intact Impression: Dyspnea secondary to acute respiratory failure with hypoxia related to bilateral Covid pneumonia Acute encephalopathy suspect alcohol withdrawal with delirium Hypertension Hyperlipidemia Alcohol abuse Leukocytosis Plan: Dyspnea secondary to acute respiratory failure with hypoxia related to bilateral Covid pneumonia: Improvement noted per patient. Currently stable on high flow at 90%. Continue with IV steroids. Continue with IV steroids and vitamin supplementation. Continue to wean off oxygen to maintain sats above 93%. Encourage ambulation, proning, incentive spirometer. Continue to pursue long- term acute care facility placement. Patient would be an appropriate candidate. Patient agreeable to plan of care. I will turn the service over to the hospitalist team tomorrow. I will go over the plan of care with him. Acute encephalopathy suspect alcohol withdrawal with delirium: This appears resolved. Patient appears to be back to his baseline. Some anxiety noted. Geodon provided as needed. Continue Xanax as needed. Continue with thiamine and folic acid. Hypertension: Continue with enalapril 5 mg daily. Will monitor and adjust appropriately. Hyperlipidemia: Continue Lipitor 20 mg daily. Alcohol abuse: Continue with thiamine and folic acid. Leukocytosis: Likely from steroids. Will monitor closely. Steroid decreased. Continue Rocephin and Diflucan CODE STATUS: Full code DVT prophylaxis: Xarelto [facility] care [id number] minutes: LTAC Time Spent Managing Pts Care (In Minutes): 55
[2020-12-04 06:44] LABS: Absolute Lymphocytes (CBC) 0.3 K/uL (0.7-4.9); Basophils % 0.1 % (0-1.3); Hematocrit 33.7 % (39.6-49.0); Lymphocytes % 1.3 % (15.3-44.8); MPV 9.7 fL (7.6-11.3); RBC Red Blood Cell Count 3.14 M/uL (4.33-5.43)
[2020-12-04 07:04] LABS: ALT/SGPT 29 U/L (12-78); AST/SGOT 20 U/L (15-37); Albumin 2.5 g/dL (3.4-5.0); Alkaline Phosphatase 89 U/L (45-117); BUN Blood Urea Nitrogen 25 mg/dL (7-18); Bicarbonate 28 mmol/L (21-32); Bilirubin Total 0.6 mg/dL (0.2-1.0); C-Reactive Protein < 2.90 mg/L (<3.00); Ferritin 391.6 ng/mL (26-388); Glucose Level 100 mg/dL (74-106); Magnesium 2.6 mg/dL (1.8-2.4); Potassium 4.6 mmol/L (3.5-5.1); Sodium Level 141 mmol/L (136-145)
[2020-12-04] MEDS: INSULIN -REGULAR HUMAN 50 UNIT/0.5 ML ML SQ SCH ×4 (07:30→20:42)
[2020-12-04] MEDS: CYANOCOBALAMIN 1000MCG/ML INJ IM SCH (08:08)
[2020-12-04] MEDS: CEFTRIAXONE/SWI 1gm 1 GM/10 ML SYR IV SCH (08:08)
[2020-12-04] MEDS: FLUCONAZOLE 100 MG TAB PO SCH (08:08)
[2020-12-04] MEDS: METHYLPREDNISOLONE 40 MG INJ IV SCH ×2 (08:08→20:47)
[2020-12-04] MEDS: ZINC SULFATE 220 MG CAP PO SCH (08:09)
[2020-12-04] MEDS: ENALAPRIL 10 MG TAB PO SCH (08:09)
[2020-12-04] MEDS: FAMOTIDINE 20 MG TAB PO SCH ×2 (08:09→20:48)
[2020-12-04] MEDS: ASCORBIC ACID 500 MG TABLET PO SCH ×4 (08:09→20:48)
[2020-12-04] MEDS: FOLIC ACID 1 MG TABLET PO SCH (08:09)
[2020-12-04] MEDS: THIAMINE HCL 100 MG TABLET PO SCH (08:09)
[2020-12-04] MEDS: VITAMIN D 1000 UNIT TAB PO SCH (08:09)
[2020-12-04] MEDS: CYANOCOBALAMIN 1,000 MCG TAB SL SCH (08:09)
[2020-12-04] MEDS: RIVAROXABAN 20 MG TABLET PO SCH (16:33)
[2020-12-04 18:59] LABS: Anisocytosis SLIGHT; Blood Morphology Comment NOTED (NOT SEEN); Macrocytosis 1+; Platelet Estimate ADEQ; White Blood Cell Scan OK (OK)
[2020-12-04] MEDS: ATORVASTATIN 20 MG TAB PO SCH (20:48)
[2020-12-05 06:37] LABS: Absolute Lymphocytes (CBC) 0.3 K/uL (0.7-4.9); Basophils % 0.1 % (0-1.3); Hematocrit 33.5 % (39.6-49.0); Lymphocytes % 1.2 % (15.3-44.8); MPV 9.4 fL (7.6-11.3); RBC Red Blood Cell Count 3.11 M/uL (4.33-5.43)
[2020-12-05 07:03] LABS: Albumin 2.3 g/dL (3.4-5.0); Magnesium 2.5 mg/dL (1.8-2.4); Potassium 4.9 mmol/L (3.5-5.1)
[2020-12-05 07:10] LABS: Bilirubin Total 0.6 mg/dL (0.2-1.0); C-Reactive Protein 4.49 mg/L (<3.00); Ferritin 402.7 ng/mL (26-388); Protein, Total 5.7 g/dL (6.4-8.2)
[2020-12-05] MEDS: INSULIN -REGULAR HUMAN 50 UNIT/0.5 ML ML SQ SCH ×4 (07:30→21:00)
--- NOTE | 2020-12-05 07:30 | RAD REPORT ---
EXAM DESCRIPTION: Ann Single View12/05/2020 6:53 am CLINICAL HISTORY: Shortness of breath COMPARISON: December 03, 2020 FINDINGS: Mild worsening in extensive bilateral pulmonary opacities. Development of mild bilateral subcutaneous emphysema within the chest neck. Mild pneumomediastinum. The heart is normal size IMPRESSION: Mild worsening in the extensive bilateral pulmonary opacities consistent with pneumonia Development of mild bilateral subcutaneous emphysema within the chest neck. Mild pneumomediastinum.
[2020-12-05] MEDS: ENALAPRIL 10 MG TAB PO SCH (09:00)
[2020-12-05] MEDS: METHYLPREDNISOLONE 40 MG INJ IV SCH ×2 (09:08→21:53)
[2020-12-05] MEDS: CEFTRIAXONE/SWI 1gm 1 GM/10 ML SYR IV SCH (09:08)
[2020-12-05] MEDS: THIAMINE HCL 100 MG TABLET PO SCH (09:08)
[2020-12-05] MEDS: CYANOCOBALAMIN 1,000 MCG TAB SL SCH (09:09)
[2020-12-05] MEDS: VITAMIN D 1000 UNIT TAB PO SCH (09:09)
[2020-12-05] MEDS: ASCORBIC ACID 500 MG TABLET PO SCH ×4 (09:10→21:53)
[2020-12-05] MEDS: FLUCONAZOLE 100 MG TAB PO SCH (09:10)
[2020-12-05] MEDS: FAMOTIDINE 20 MG TAB PO SCH ×2 (09:11→21:53)
[2020-12-05] MEDS: FOLIC ACID 1 MG TABLET PO SCH (09:11)
[2020-12-05] MEDS: ZINC SULFATE 220 MG CAP PO SCH (09:11)
[2020-12-05 12:15] LABS: Anisocytosis 1+; Blood Morphology Comment NOTED (NOT SEEN); Macrocytosis 1+; Platelet Estimate ADEQ
[2020-12-05 12:16] LABS: Poikilocytosis SLIGHT
[2020-12-05] MEDS: RIVAROXABAN 20 MG TABLET PO SCH (16:12)
--- NOTE | 2020-12-05 16:27 | P.PN ---
Date of Service: 12/05/20 Subjective patient requiring large amount of oxygen. On high-flow oxygen at FiO2 of 100% and 35 L a min. Review of Systems is unable to be obtained Physical Examination - Vital Signs Reviewed - Physical Exam General: Alert, In no apparent distress, Oriented x2, Confused Respiratory: Diminished Cardiovascular: Regular rate/rhythm, Normal S1 S2, No murmurs Gastrointestinal: Normal bowel sounds, Soft and benign, Non-distended, No tenderness Musculoskeletal: No clubbing, No swelling, No tenderness Neurological: Normal speech, Normal strength at 5/5 x4 extr, Normal tone, Sensation intact, Cranial nerves 3-12 intact - Studies Medications List Reviewed: Yes Assessment & Plan - Problems (Diagnosis) (1) Altered mental status Current Visit: Yes Status: Acute (2) Acute respiratory failure with hypoxia Current Visit: No Status: Acute (3) Pneumonia due to COVID-19 virus Current Visit: No Status: Acute (4) HLD (hyperlipidemia) Current Visit: No Status: Chronic Qualifiers: Hyperlipidemia type: unspecified (5) HTN (hypertension) Current Visit: No Status: Chronic Qualifiers: Hypertension type: primary hypertension - Plan Continue with plan of care as mentioned below: 1. Continue with IV steroids 2. Monitor inflammatory markers 3. Repeat chest x-ray 4. O2 per protocol 5. Pulmonary consultation if symptoms are not improving 6. Continue with albuterol inhaler therapy; also supportive care 7. Continue with antipsychotics as needed 8. Monitor neuro status 9. GI and DVT prophylaxis
[2020-12-05] MEDS: ATORVASTATIN 20 MG TAB PO SCH (21:53)
[2020-12-06] MEDS: INSULIN -REGULAR HUMAN 50 UNIT/0.5 ML ML SQ SCH ×4 (07:30→21:00)
[2020-12-06] MEDS: CEFTRIAXONE/SWI 1gm 1 GM/10 ML SYR IV SCH (09:59)
[2020-12-06] MEDS: THIAMINE HCL 100 MG TABLET PO SCH (10:00)
[2020-12-06] MEDS: ZINC SULFATE 220 MG CAP PO SCH (10:00)
[2020-12-06] MEDS: ENALAPRIL 10 MG TAB PO SCH (10:00)
[2020-12-06] MEDS: CYANOCOBALAMIN 1,000 MCG TAB SL SCH (10:00)
[2020-12-06] MEDS: FOLIC ACID 1 MG TABLET PO SCH (10:01)
[2020-12-06] MEDS: ASCORBIC ACID 500 MG TABLET PO SCH ×4 (10:01→22:20)
[2020-12-06] MEDS: FLUCONAZOLE 100 MG TAB PO SCH (10:01)
[2020-12-06] MEDS: METHYLPREDNISOLONE 40 MG INJ IV SCH ×2 (10:01→22:21)
[2020-12-06] MEDS: VITAMIN D 1000 UNIT TAB PO SCH (10:01)
[2020-12-06] MEDS: FAMOTIDINE 20 MG TAB PO SCH ×2 (10:05→22:20)
[2020-12-06] MEDS: RIVAROXABAN 20 MG TABLET PO SCH (16:08)
[2020-12-06] MEDS: ATORVASTATIN 20 MG TAB PO SCH (22:20)
--- NOTE | 2020-12-07 07:11 | P.PN ---
Date of Service: 12/06/20 Subjective Attempted to hydrate patient's oxygen. Cut it down a 90% any he is keeping his oxygen saturations in the mid 90s. Will continue to try to cut it down around 10% daily and hopefully we can get him turned around. He clinically appears to be looking much better. He is answering in talking to me appropriately and whenever he moves around he had does not feel like he is getting as much short winded. He has not spoken to any other physicians at this time. Review of Systems 10 point review system is unremarkable Physical Examination - Vital Signs Reviewed - Physical Exam General: Alert, In no apparent distress, Oriented x3 Respiratory: Diminished Cardiovascular: Regular rate/rhythm, Normal S1 S2, No murmurs Gastrointestinal: Normal bowel sounds, Soft and benign, Non-distended, No tenderness Musculoskeletal: No clubbing, No swelling, No tenderness Neurological: No focal deficits noted - Studies Medications List Reviewed: Yes Assessment & Plan - Problems (Diagnosis) (1) Altered mental status Current Visit: Yes Status: Acute (2) Acute respiratory failure with hypoxia Current Visit: No Status: Acute (3) Pneumonia due to COVID-19 virus Current Visit: No Status: Acute (4) HLD (hyperlipidemia) Current Visit: No Status: Chronic Qualifiers: Hyperlipidemia type: unspecified (5) HTN (hypertension) Current Visit: No Status: Chronic Qualifiers: Hypertension type: primary hypertension - Plan Continue with plan of care as mentioned below: 1. Continue with IV steroids; may need to start tapering it down as he continues to improve 2. Monitor inflammatory markers 3. Repeat chest x-ray 4. O2 per protocol 5. Physical therapy evaluation 6. Continue with albuterol inhaler therapy; also supportive care 7. Continue with antipsychotics as needed 8. Monitor neuro status 9. GI and DVT prophylaxis
[2020-12-07] MEDS: INSULIN -REGULAR HUMAN 50 UNIT/0.5 ML ML SQ SCH ×4 (07:30→21:00)
[2020-12-07] MEDS: FLUCONAZOLE 100 MG TAB PO SCH (09:00)
[2020-12-07] MEDS: ENALAPRIL 10 MG TAB PO SCH (09:00)
[2020-12-07] MEDS: FOLIC ACID 1 MG TABLET PO SCH (10:53)
[2020-12-07] MEDS: CEFTRIAXONE/SWI 1gm 1 GM/10 ML SYR IV SCH (10:54)
[2020-12-07] MEDS: FAMOTIDINE 20 MG TAB PO SCH ×2 (10:54→21:20)
[2020-12-07] MEDS: CYANOCOBALAMIN 1,000 MCG TAB SL SCH (10:56)
[2020-12-07] MEDS: THIAMINE HCL 100 MG TABLET PO SCH (10:56)
[2020-12-07] MEDS: METHYLPREDNISOLONE 40 MG INJ IV SCH ×2 (10:56→21:20)
[2020-12-07] MEDS: ZINC SULFATE 220 MG CAP PO SCH (10:57)
[2020-12-07] MEDS: VITAMIN D 1000 UNIT TAB PO SCH (10:57)
[2020-12-07] MEDS: ASCORBIC ACID 500 MG TABLET PO SCH ×4 (10:57→21:20)
[2020-12-07] MEDS: RIVAROXABAN 20 MG TABLET PO SCH (17:00)
[2020-12-07] MEDS: ATORVASTATIN 20 MG TAB PO SCH (21:20)
[2020-12-08 06:09] LABS: Absolute Lymphocytes (CBC) 0.3 K/uL (0.7-4.9); Basophils % 0.3 % (0-1.3); Lymphocytes % 1.6 % (15.3-44.8); MPV 9.9 fL (7.6-11.3); RBC Red Blood Cell Count 2.99 M/uL (4.33-5.43)
[2020-12-08 06:33] LABS: BUN Blood Urea Nitrogen 27 mg/dL (7-18); Bicarbonate 28 mmol/L (21-32); Ferritin 359.4 ng/mL (26-388); Glucose Level 108 mg/dL (74-106); Potassium 4.5 mmol/L (3.5-5.1); Sodium Level 139 mmol/L (136-145)
[2020-12-08] MEDS: INSULIN -REGULAR HUMAN 50 UNIT/0.5 ML ML SQ SCH ×4 (07:30→20:17)
[2020-12-08] MEDS: ASCORBIC ACID 500 MG TABLET PO SCH ×4 (08:23→20:16)
[2020-12-08] MEDS: FOLIC ACID 1 MG TABLET PO SCH (08:23)
[2020-12-08] MEDS: ZINC SULFATE 220 MG CAP PO SCH (08:23)
[2020-12-08] MEDS: CEFTRIAXONE/SWI 1gm 1 GM/10 ML SYR IV SCH (08:23)
[2020-12-08] MEDS: FAMOTIDINE 20 MG TAB PO SCH ×2 (08:23→20:17)
[2020-12-08] MEDS: FLUCONAZOLE 100 MG TAB PO SCH (08:23)
[2020-12-08] MEDS: METHYLPREDNISOLONE 40 MG INJ IV SCH ×2 (08:23→20:16)
[2020-12-08] MEDS: VITAMIN D 1000 UNIT TAB PO SCH (08:24)
[2020-12-08] MEDS: ENALAPRIL 10 MG TAB PO SCH (08:24)
[2020-12-08] MEDS: CYANOCOBALAMIN 1,000 MCG TAB SL SCH (08:24)
[2020-12-08] MEDS: THIAMINE HCL 100 MG TABLET PO SCH (08:24)
[2020-12-08 08:33] LABS: Anisocytosis 1+; Blood Morphology Comment NOTED (NOT SEEN); Macrocytosis 1+; Platelet Estimate ADEQ; White Blood Cell Scan OK (OK)
[2020-12-08] MEDS ORDERED: METHYLPREDNISOLONE 125 MG INJ IV ONE (12:33)
[2020-12-08] MEDS: RIVAROXABAN 20 MG TABLET PO SCH (16:52)
[2020-12-08] MEDS: ATORVASTATIN 20 MG TAB PO SCH (20:16)
[2020-12-08] MEDS: MELATONIN 5 MG TABLET PO PRN (20:16)
[2020-12-09] MEDS: INSULIN -REGULAR HUMAN 50 UNIT/0.5 ML ML SQ SCH ×4 (07:30→20:29)
[2020-12-09] MEDS: CEFTRIAXONE/SWI 1gm 1 GM/10 ML SYR IV SCH (09:00)
[2020-12-09] MEDS: CYANOCOBALAMIN 1,000 MCG TAB SL SCH (09:33)
[2020-12-09] MEDS: FAMOTIDINE 20 MG TAB PO SCH ×2 (09:33→20:27)
[2020-12-09] MEDS: THIAMINE HCL 100 MG TABLET PO SCH (09:35)
[2020-12-09] MEDS: FLUCONAZOLE 100 MG TAB PO SCH (09:35)
[2020-12-09] MEDS: ZINC SULFATE 220 MG CAP PO SCH (09:35)
[2020-12-09] MEDS: FOLIC ACID 1 MG TABLET PO SCH (09:35)
[2020-12-09] MEDS: ASCORBIC ACID 500 MG TABLET PO SCH ×4 (09:35→20:27)
[2020-12-09] MEDS: ENALAPRIL 10 MG TAB PO SCH (09:36)
[2020-12-09] MEDS: METHYLPREDNISOLONE 40 MG INJ IV SCH ×2 (09:37→20:27)
[2020-12-09] MEDS: VITAMIN D 1000 UNIT TAB PO SCH (09:38)
--- NOTE | 2020-12-09 12:36 | P.PN ---
Date of Service: 12/08/20 Subjective Patient clinical symptoms are not really improving much. His oxygenation was slowly improving but during the evening times his FiO2 increases. I will try to get it turned down during the day 10 90%. But routinely at night they always turn it back up to 100%. He clinically looks to be doing fine and he does not complain of any shortness of breath whatsoever. Review of Systems 10 point review system is unremarkable Physical Examination - Vital Signs Reviewed - Physical Exam General: Alert, In no apparent distress, Oriented x3 Respiratory: Diminished Cardiovascular: Regular rate/rhythm, Normal S1 S2, No murmurs Gastrointestinal: Normal bowel sounds, Soft and benign, Non-distended, No tenderness Musculoskeletal: No clubbing, No swelling, No tenderness Neurological: No focal deficits noted - Studies Medications List Reviewed: Yes Assessment & Plan - Problems (Diagnosis) (1) Altered mental status Current Visit: Yes Status: Acute (2) Acute respiratory failure with hypoxia Current Visit: No Status: Acute (3) Pneumonia due to COVID-19 virus Current Visit: No Status: Acute (4) HLD (hyperlipidemia) Current Visit: No Status: Chronic Qualifiers: Hyperlipidemia type: unspecified (5) HTN (hypertension) Current Visit: No Status: Chronic Qualifiers: Hypertension type: primary hypertension - Plan Continue with plan of care as mentioned below: 1. Continue with IV steroids; was hoping to taper down but will continue to monitor patient's O2 saturations 2. Continue keeping a distant eye on inflammatory markers 3. Repeat chest x-ray if symptoms worsen 4. O2 per protocol; we need to try to aggressively get this wean down 5. Physical therapy continue 6. Continue with albuterol inhaler therapy; also supportive care 7. Continue with antipsychotics as needed 8. Monitor neuro status 9. GI and DVT prophylaxis
[2020-12-09] MEDS: RIVAROXABAN 20 MG TABLET PO SCH (16:59)
[2020-12-09] MEDS: ATORVASTATIN 20 MG TAB PO SCH (20:27)
[2020-12-09] MEDS: MELATONIN 5 MG TABLET PO PRN (20:29)
[2020-12-10] MEDS: INSULIN -REGULAR HUMAN 50 UNIT/0.5 ML ML SQ SCH ×4 (07:30→21:00)
[2020-12-10] MEDS: THIAMINE HCL 100 MG TABLET PO SCH (08:10)
[2020-12-10] MEDS: VITAMIN D 1000 UNIT TAB PO SCH (08:10)
[2020-12-10] MEDS: ASCORBIC ACID 500 MG TABLET PO SCH ×4 (08:10→21:48)
[2020-12-10] MEDS: CYANOCOBALAMIN 1,000 MCG TAB SL SCH (08:10)
[2020-12-10] MEDS: ZINC SULFATE 220 MG CAP PO SCH (08:11)
[2020-12-10] MEDS: FOLIC ACID 1 MG TABLET PO SCH (08:11)
[2020-12-10] MEDS: FAMOTIDINE 20 MG TAB PO SCH ×2 (08:11→21:48)
[2020-12-10] MEDS: METHYLPREDNISOLONE 40 MG INJ IV SCH ×3 (08:11→21:51)
[2020-12-10] MEDS: FLUCONAZOLE 100 MG TAB PO SCH (08:30)
[2020-12-10] MEDS: ENALAPRIL 10 MG TAB PO SCH (08:30)
[2020-12-10 11:27] LABS: Absolute Lymphocytes (CBC) 0.3 K/uL (0.7-4.9); Basophils % 0.2 % (0-1.3); Lymphocytes % 1.9 % (15.3-44.8); MPV 8.4 fL (7.6-11.3); RBC Red Blood Cell Count 3.22 M/uL (4.33-5.43)
[2020-12-10 11:43] LABS: ALT/SGPT 27 U/L (12-78); AST/SGOT 11 U/L (15-37); Albumin 2.2 g/dL (3.4-5.0); Alkaline Phosphatase 76 U/L (45-117); BUN Blood Urea Nitrogen 29 mg/dL (7-18); Bicarbonate 27 mmol/L (21-32); Bilirubin Total 0.5 mg/dL (0.2-1.0); C-Reactive Protein 6.73 mg/L (<3.00); Ferritin 348.8 ng/mL (26-388); Glucose Level 122 mg/dL (74-106); Magnesium 2.4 mg/dL (1.8-2.4); Potassium 4.4 mmol/L (3.5-5.1); Sodium Level 141 mmol/L (136-145)
[2020-12-10 14:44] LABS: Blood Morphology Comment NOTED (NOT SEEN); Macrocytosis 1+; Platelet Estimate ADEQ; White Blood Cell Scan OK (OK)
[2020-12-10] MEDS: RIVAROXABAN 20 MG TABLET PO SCH (17:05)
[2020-12-10] MEDS: ATORVASTATIN 20 MG TAB PO SCH (21:49)
[2020-12-11] MEDS: INSULIN -REGULAR HUMAN 50 UNIT/0.5 ML ML SQ SCH ×4 (07:30→21:00)
[2020-12-11] MEDS: CYANOCOBALAMIN 1,000 MCG TAB SL SCH (08:50)
[2020-12-11] MEDS: VITAMIN D 1000 UNIT TAB PO SCH (08:50)
[2020-12-11] MEDS: ZINC SULFATE 220 MG CAP PO SCH (08:50)
[2020-12-11] MEDS: METHYLPREDNISOLONE 40 MG INJ IV SCH ×2 (08:50→21:13)
[2020-12-11] MEDS: FAMOTIDINE 20 MG TAB PO SCH ×2 (08:50→21:12)
[2020-12-11] MEDS: THIAMINE HCL 100 MG TABLET PO SCH (08:50)
[2020-12-11] MEDS: ASCORBIC ACID 500 MG TABLET PO SCH ×4 (08:51→21:12)
[2020-12-11] MEDS: FOLIC ACID 1 MG TABLET PO SCH (08:51)
[2020-12-11] MEDS: CYANOCOBALAMIN 1000MCG/ML INJ IM SCH (08:55)
[2020-12-11] MEDS: ENALAPRIL 10 MG TAB PO SCH (08:55)
[2020-12-11] MEDS: FLUCONAZOLE 100 MG TAB PO SCH (08:55)
--- NOTE | 2020-12-11 09:53 | P.PN ---
Date of Service: 12/09/20 Subjective Patient continues to do well with no new complaints. Patient's clinical symptoms are stable. Need to encourage nurses and therapist to not increase the oxygen unless saturations are persistently low and clinical symptoms are worsening. Review of Systems 10 point review system is unremarkable Physical Examination - Vital Signs Reviewed - Physical Exam General: Alert, In no apparent distress, Oriented x3 Respiratory: Diminished Cardiovascular: Regular rate/rhythm, Normal S1 S2, No murmurs Gastrointestinal: Normal bowel sounds, Soft and benign, Non-distended, No tenderness Musculoskeletal: No clubbing, No swelling, No tenderness Neurological: No focal deficits noted - Studies Medications List Reviewed: Yes Assessment & Plan - Problems (Diagnosis) (1) Altered mental status Current Visit: Yes Status: Acute (2) Acute respiratory failure with hypoxia Current Visit: No Status: Acute (3) Pneumonia due to COVID-19 virus Current Visit: No Status: Acute (4) HLD (hyperlipidemia) Current Visit: No Status: Chronic Qualifiers: Hyperlipidemia type: unspecified (5) HTN (hypertension) Current Visit: No Status: Chronic Qualifiers: Hypertension type: primary hypertension - Plan Continue with plan of care as mentioned below: 1. Continue with IV steroids; was hoping to taper down but will continue to monitor patient's O2 saturations; need to encourage nursing and therapy to slowly work down the oxygen saturations 2. Continue monitoring inflammatory markers 3. Repeat chest x-ray if symptoms worsen 4. Titrate O2 5. Physical therapy will continue 6. Continue with albuterol inhaler therapy; also supportive care 7. GI and DVT prophylaxis
--- NOTE | 2020-12-11 09:54 | P.PN ---
Date of Service: 12/10/20 Subjective Patient continues to do well with no new complaints. Patient's clinical symptoms are improving. Review of Systems 10 point review system is unremarkable Physical Examination - Vital Signs Reviewed - Physical Exam General: Alert, In no apparent distress, Oriented x3 Respiratory: Diminished Cardiovascular: Regular rate/rhythm, Normal S1 S2, No murmurs Gastrointestinal: Normal bowel sounds, Soft and benign, Non-distended, No tenderness Musculoskeletal: No clubbing, No swelling, No tenderness Neurological: No focal deficits noted - Studies Medications List Reviewed: Yes Assessment & Plan - Problems (Diagnosis) (1) Altered mental status Current Visit: Yes Status: Acute (2) Acute respiratory failure with hypoxia Current Visit: No Status: Acute (3) Pneumonia due to COVID-19 virus Current Visit: No Status: Acute (4) HLD (hyperlipidemia) Current Visit: No Status: Chronic Qualifiers: Hyperlipidemia type: unspecified (5) HTN (hypertension) Current Visit: No Status: Chronic Qualifiers: Hypertension type: primary hypertension - Plan Continue with plan of care as mentioned below: 1. Decreased oxygen saturations as well as IV steroids 2. Continue monitoring inflammatory markers 3. Repeat chest x-ray if symptoms worsen 4. Titrate O2 5. Physical therapy will continue 6. Continue with albuterol inhaler therapy; also supportive care 7. GI and DVT prophylaxis
[2020-12-11] MEDS: RIVAROXABAN 20 MG TABLET PO SCH (17:29)
[2020-12-11] MEDS: ATORVASTATIN 20 MG TAB PO SCH (21:12)
[2020-12-12] MEDS: INSULIN -REGULAR HUMAN 50 UNIT/0.5 ML ML SQ SCH ×4 (07:30→21:00)
[2020-12-12] MEDS: METHYLPREDNISOLONE 40 MG INJ IV SCH ×2 (08:51→21:32)
[2020-12-12] MEDS: VITAMIN D 1000 UNIT TAB PO SCH (08:51)
[2020-12-12] MEDS: ZINC SULFATE 220 MG CAP PO SCH (08:51)
[2020-12-12] MEDS: ENALAPRIL 10 MG TAB PO SCH (08:52)
[2020-12-12] MEDS: CYANOCOBALAMIN 1,000 MCG TAB SL SCH (08:55)
[2020-12-12] MEDS: THIAMINE HCL 100 MG TABLET PO SCH (08:55)
[2020-12-12] MEDS: ASCORBIC ACID 500 MG TABLET PO SCH ×4 (08:56→21:00)
[2020-12-12] MEDS: FLUCONAZOLE 100 MG TAB PO SCH (08:57)
[2020-12-12] MEDS: FOLIC ACID 1 MG TABLET PO SCH (09:02)
[2020-12-12] MEDS: FAMOTIDINE 20 MG TAB PO SCH ×2 (09:02→21:31)
[2020-12-12] MEDS: RIVAROXABAN 20 MG TABLET PO SCH (16:17)
--- NOTE | 2020-12-12 16:41 | P.PN ---
Date of Service: 12/11/20 Subjective Patient continues to feel better. FiO2 is down to 88%. LTAC may accept the patient within FiO2 of 85% her LEs. Oxygen saturations are maintaining in the low 90s. Patient is doing well in getting out of bed without any difficulty. Review of Systems 10 point review system is unremarkable Physical Examination - Vital Signs Reviewed - Physical Exam General: Alert, In no apparent distress, Oriented x3 Respiratory: Diminished Cardiovascular: Regular rate/rhythm, Normal S1 S2, No murmurs Gastrointestinal: Normal bowel sounds, Soft and benign, Non-distended, No tenderness Musculoskeletal: No clubbing, No swelling, No tenderness Neurological: No focal deficits noted - Studies Medications List Reviewed: Yes Assessment & Plan - Problems (Diagnosis) (1) Altered mental status Current Visit: Yes Status: Acute (2) Acute respiratory failure with hypoxia Current Visit: No Status: Acute (3) Pneumonia due to COVID-19 virus Current Visit: No Status: Acute (4) HLD (hyperlipidemia) Current Visit: No Status: Chronic Qualifiers: Hyperlipidemia type: unspecified (5) HTN (hypertension) Current Visit: No Status: Chronic Qualifiers: Hypertension type: primary hypertension - Plan Continue with plan of care as mentioned below: 1. Decreased oxygen saturations as well as IV steroids; monitor patient's FiO2 and slowly wean it down 2. Continue monitoring inflammatory markers 3. Repeat chest x-ray if symptoms worsen 4. Titrate O2 a little more aggressively 5. Physical therapy will continue; patient can participate in the room 6. Continue with albuterol inhaler therapy; also supportive care 7. GI and DVT prophylaxis
[2020-12-12] MEDS: HYDRALAZINE HCL 20 MG/ML VIAL IV PRN (16:43)
[2020-12-12] MEDS ORDERED: FUROSEMIDE 20 MG/ 2ML VIAL IV ONE (16:46)
[2020-12-12] MEDS: METOPROLOL TAR 25 MG TAB PO SCH (18:29)
[2020-12-12] MEDS: LOSARTAN POTASSIUM 50 MG TABLET PO SCH (21:00)
[2020-12-13] MEDS: METOPROLOL TAR 25 MG TAB PO SCH ×2 (06:33→17:18)
[2020-12-13] MEDS: INSULIN -REGULAR HUMAN 50 UNIT/0.5 ML ML SQ SCH ×4 (07:30→21:00)
[2020-12-13] MEDS: ASCORBIC ACID 500 MG TABLET PO SCH ×4 (09:40→21:53)
[2020-12-13] MEDS: CYANOCOBALAMIN 1,000 MCG TAB SL SCH (09:40)
[2020-12-13] MEDS: VITAMIN D 1000 UNIT TAB PO SCH (09:40)
[2020-12-13] MEDS: ZINC SULFATE 220 MG CAP PO SCH (09:40)
[2020-12-13] MEDS: THIAMINE HCL 100 MG TABLET PO SCH (09:41)
[2020-12-13] MEDS: FOLIC ACID 1 MG TABLET PO SCH (09:41)
[2020-12-13] MEDS: METHYLPREDNISOLONE 40 MG INJ IV SCH ×2 (09:41→21:52)
[2020-12-13] MEDS: FAMOTIDINE 20 MG TAB PO SCH ×2 (09:41→21:52)
[2020-12-13] MEDS: LOSARTAN POTASSIUM 50 MG TABLET PO SCH ×2 (09:41→21:52)
[2020-12-13] MEDS: FLUTICASONE 50MCG NASAL SPRAY NAS SCH (17:17)
[2020-12-13] MEDS: RIVAROXABAN 20 MG TABLET PO SCH (17:20)
--- NOTE | 2020-12-14 01:31 | P.PN ---
Date of Service: 12/12/20 Subjective Patient continues to feel better. FiO2 is down to 86%. LTAC may accept the patient within FiO2 of 85%. Oxygen saturations are maintaining in the low 90s. Patient is doing well in getting out of bed without any difficulty. Review of Systems 10 point review system is unremarkable Physical Examination - Vital Signs Reviewed - Physical Exam General: Alert, In no apparent distress, Oriented x3 Respiratory: Diminished Cardiovascular: Regular rate/rhythm, Normal S1 S2, No murmurs Gastrointestinal: Normal bowel sounds, Soft and benign, Non-distended, No tenderness Musculoskeletal: No clubbing, No swelling, No tenderness Neurological: No focal deficits noted - Studies Medications List Reviewed: Yes Assessment & Plan - Problems (Diagnosis) (1) Altered mental status Current Visit: Yes Status: Acute (2) Acute respiratory failure with hypoxia Current Visit: No Status: Acute (3) Pneumonia due to COVID-19 virus Current Visit: No Status: Acute (4) HLD (hyperlipidemia) Current Visit: No Status: Chronic Qualifiers: Hyperlipidemia type: unspecified (5) HTN (hypertension) Current Visit: No Status: Chronic Qualifiers: Hypertension type: primary hypertension - Plan Continue with plan of care as mentioned below: 1. Decreased FiO2 as well as IV steroids; monitor patient's FiO2 and slowly wean it down; once under 85% then possible transfer to long-term acute care facility 2. Continue monitoring inflammatory markers 3. Repeat chest x-ray if symptoms worsen 4. Titrate O2 a little more aggressively 5. Physical therapy will continue; patient can participate in the room 6. Continue with albuterol inhaler therapy; also supportive care 7. GI and DVT prophylaxis
[2020-12-14] MEDS: HYDRALAZINE HCL 20 MG/ML VIAL IV PRN ×2 (03:25→17:17)
[2020-12-14] MEDS ORDERED: MORPHINE 4 MG/ML SYR IV ONE (04:36)
[2020-12-14 05:38] LABS: Absolute Lymphocytes (CBC) 0.3 K/uL (0.7-4.9); Basophils % 0.2 % (0-1.3); Hematocrit 39.9 % (39.6-49.0); Lymphocytes % 2.2 % (15.3-44.8); MPV 9.2 fL (7.6-11.3); RBC Red Blood Cell Count 3.81 M/uL (4.33-5.43)
[2020-12-14 05:53] LABS: BUN Blood Urea Nitrogen 34 mg/dL (7-18); Bicarbonate 24 mmol/L (21-32); Glucose Level 111 mg/dL (74-106); Magnesium 2.4 mg/dL (1.8-2.4); Potassium 4.1 mmol/L (3.5-5.1); Sodium Level 143 mmol/L (136-145)
[2020-12-14 05:57] LABS: C-Reactive Protein < 2.90 mg/L (<3.00)
[2020-12-14 06:00] LABS: Ferritin 265.7 ng/mL (26-388)
[2020-12-14] MEDS: INSULIN -REGULAR HUMAN 50 UNIT/0.5 ML ML SQ SCH ×4 (07:30→21:00)
[2020-12-14] MEDS: THIAMINE HCL 100 MG TABLET PO SCH (08:56)
[2020-12-14] MEDS: LOSARTAN POTASSIUM 50 MG TABLET PO SCH ×2 (08:56→21:04)
[2020-12-14] MEDS: VITAMIN D 1000 UNIT TAB PO SCH (08:56)
[2020-12-14] MEDS: METHYLPREDNISOLONE 40 MG INJ IV SCH ×2 (08:56→21:05)
[2020-12-14] MEDS: FOLIC ACID 1 MG TABLET PO SCH (08:56)
[2020-12-14] MEDS: ASCORBIC ACID 500 MG TABLET PO SCH ×4 (08:56→21:04)
[2020-12-14] MEDS: CYANOCOBALAMIN 1,000 MCG TAB SL SCH (08:56)
[2020-12-14] MEDS: FAMOTIDINE 20 MG TAB PO SCH ×2 (08:56→21:05)
[2020-12-14] MEDS: ZINC SULFATE 220 MG CAP PO SCH (08:57)
[2020-12-14] MEDS: METOPROLOL TAR 25 MG TAB PO SCH ×2 (08:57→17:16)
[2020-12-14] MEDS: FLUTICASONE 50MCG NASAL SPRAY NAS SCH (09:03)
--- NOTE | 2020-12-14 17:09 | P.PN ---
Subjective Date of Service: 12/14/20 Chief Complaint: covid pneumonia Subjective: Other (Patient remains on high flow at 100%) Physical Examination - Vital Signs Temperature: 97.1 F Blood Pressure: 161/90 Pulse: 69 Respirations: 23 Pulse Ox (%): 95 - Studies Medications List Reviewed: Yes Assessment & Plan Discharge Plan: LTAC Plan to discharge in: 48 Hours Physician Review Additional Text: Covid: Positive, unvaccinated CT head: COMPARISON: No comparisons TECHNIQUE: Axial 5 mm thick images of the head were obtained without IV contrast. All CT scans are performed using dose optimization technique as appropriate and may include automated exposure control or mA/KV adjustment according to patient size. FINDINGS: No intracranial hemorrhage, mass, edema or shift of mid-line structures. No acute infarction changes seen. No abnormal extra-axial fluid collections. Ventricles are normal. No significant atrophy or chronic ischemic change. Mastoid air cells and visualized portions of the paranasal sinuses are clear. No acute bony findings. IMPRESSION: Negative non-contrast CT head examination for acute or significant finding. Echocardiogram: MEASUREMENTS (cm) DIASTOLIC (NORMALS) SYSTOLIC (NORMALS) IVSd 1.0 (0.6-1.2) LA Diam 2.9 (1.9-4.0) LVEF 55% LVIDd 4.8 (3.5-5.7) LVIDs 3.4 (2.0-3.5) %FS 29% LVPWd 1.0 (0.6-1.2) Ao Diam 3.3 (2.0-3.7) 2 DIMENSIONAL ASSESSMENT: RIGHT ATRIUM: NORMAL LEFT ATRIUM: NORMAL RIGHT VENTRICLE: NORMAL LEFT VENTRICLE: NORMAL TRICUSPID VALVE: NORMAL MITRAL VALVE: NORMAL PULMONIC VALVE: AORTIC VALVE: NORMAL PERICARDIAL EFFUSION: NONE AORTIC ROOT: NORMAL LEFT VENTRICULAR WALL MOTION: NORMAL DOPPLER/COLOR FLOW: MILD TRICUSPID AND MITRAL REGURGITATION. COMMENTS: NORMAL LEFT VENTRICULAR EJECTION FRACTION 55-60% WITH NORMAL WALL MOTION. MILD TRICUSPID AND MITRAL REGURGITATION. Follow-up chest x-ray 12/05/2020: COMPARISON: December 03, 2020 FINDINGS: Mild worsening in extensive bilateral pulmonary opacities. Development of mild bilateral subcutaneous emphysema within the chest neck. Mild pneumomediastinum. The heart is normal size IMPRESSION: Mild worsening in the extensive bilateral pulmonary opacities consistent with pneumonia Development of mild bilateral subcutaneous emphysema within the chest neck. Mild pneumomediastinum.. Physical exam: General: Alert, In no apparent distress, Oriented x2, no confusion noted. Some anxiety Respiratory: Clear. High flow at 100% Cardiovascular: Regular rate/rhythm, Normal S1 S2, No murmurs Gastrointestinal: Normal bowel sounds, Soft and benign, Non-distended, No tenderness Musculoskeletal: No clubbing, No swelling, No tenderness Neurological: Normal speech, Normal strength at 5/5 x4 extr, Normal tone, Sensation intact, Cranial nerves 3-12 intact Impression: Dyspnea secondary to acute respiratory failure with hypoxia related to bilateral Covid pneumonia Acute encephalopathy suspect alcohol withdrawal with delirium Hypertension Hyperlipidemia Alcohol abuse Leukocytosis Plan: Dyspnea secondary to acute respiratory failure with hypoxia related to bilateral Covid pneumonia: Patient continues on high flow. Continue IV steroids and supplements. Encourage proning, incentive spirometer. Patient has been accepted to LTAC but needs improvement on high flow at less than 85%. Acute encephalopathy suspect alcohol withdrawal with delirium: Overall resolved. We will monitor this closely. Hypertension: Continue with metoprolol and losartan. Will monitor and adjust appropriately. Hyperlipidemia: Continue Lipitor 20 mg daily. Alcohol abuse: Continue with thiamine and folic acid. Leukocytosis: Likely from steroids. Improved. CODE STATUS: Full code DVT prophylaxis: Xarelto [facility] [email or web address] minutes: LTAC Time Spent Managing Pts Care (In Minutes): 55
[2020-12-14] MEDS: RIVAROXABAN 20 MG TABLET PO SCH (17:33)
[2020-12-15 04:32] LABS: Absolute Lymphocytes (CBC) 0.3 K/uL (0.7-4.9); Basophils % 0.1 % (0-1.3); Hematocrit 42.9 % (39.6-49.0); Lymphocytes % 2.6 % (15.3-44.8); MPV 8.2 fL (7.6-11.3); RBC Red Blood Cell Count 4.14 M/uL (4.33-5.43)
[2020-12-15 04:50] LABS: BUN Blood Urea Nitrogen 33 mg/dL (7-18); Bicarbonate 26 mmol/L (21-32); C-Reactive Protein 4.19 mg/L (<3.00); Glucose Level 102 mg/dL (74-106); Magnesium 2.6 mg/dL (1.8-2.4); Potassium 5.2 mmol/L (3.5-5.1); Sodium Level 139 mmol/L (136-145)
[2020-12-15] MEDS: METOPROLOL TAR 25 MG TAB PO SCH ×2 (05:15→17:21)
[2020-12-15] MEDS: BENZONATATE 100 MG CAP PO PRN ×2 (05:16→20:37)
[2020-12-15 05:35] LABS: Blood Morphology Comment NOT SEEN (NOT SEEN); Platelet Estimate ADEQ
--- NOTE | 2020-12-15 06:45 | P.PN ---
Subjective Date of Service: 12/15/20 Chief Complaint: covid pneumonia Subjective: Improving (Patient on high flow at 90%) Physical Examination - Vital Signs Temperature: 97.8 F Blood Pressure: 148/74 Pulse: 82 Respirations: 22 Pulse Ox (%): 93 - Studies Medications List Reviewed: Yes Assessment & Plan Discharge Plan: LTAC Plan to discharge in: 48 Hours Physician Review Additional Text: Covid: Positive, unvaccinated CT head: COMPARISON: No comparisons TECHNIQUE: Axial 5 mm thick images of the head were obtained without IV contrast. All CT scans are performed using dose optimization technique as appropriate and may include automated exposure control or mA/KV adjustment according to patient size. FINDINGS: No intracranial hemorrhage, mass, edema or shift of mid-line structures. No acute infarction changes seen. No abnormal extra-axial fluid collections. Ventricles are normal. No significant atrophy or chronic ischemic change. Mastoid air cells and visualized portions of the paranasal sinuses are clear. No acute bony findings. IMPRESSION: Negative non-contrast CT head examination for acute or significant finding. Echocardiogram: MEASUREMENTS (cm) DIASTOLIC (NORMALS) SYSTOLIC (NORMALS) IVSd 1.0 (0.6-1.2) LA Diam 2.9 (1.9-4.0) LVEF 55% LVIDd 4.8 (3.5-5.7) LVIDs 3.4 (2.0-3.5) %FS 29% LVPWd 1.0 (0.6-1.2) Ao Diam 3.3 (2.0-3.7) 2 DIMENSIONAL ASSESSMENT: RIGHT ATRIUM: NORMAL LEFT ATRIUM: NORMAL RIGHT VENTRICLE: NORMAL LEFT VENTRICLE: NORMAL TRICUSPID VALVE: NORMAL MITRAL VALVE: NORMAL PULMONIC VALVE: AORTIC VALVE: NORMAL PERICARDIAL EFFUSION: NONE AORTIC ROOT: NORMAL LEFT VENTRICULAR WALL MOTION: NORMAL DOPPLER/COLOR FLOW: MILD TRICUSPID AND MITRAL REGURGITATION. COMMENTS: NORMAL LEFT VENTRICULAR EJECTION FRACTION 55-60% WITH NORMAL WALL MOTION. MILD TRICUSPID AND MITRAL REGURGITATION. Follow-up chest x-ray 12/15/2020: COMPARISON: December 05, 2020 FINDINGS: The bilateral subcutaneous emphysema has progressed. Pneumomediastinum. Improvement in the bilateral pulmonary opacities. Heart is normal size Curvilinear density overlies the upper lungs bilaterally IMPRESSION: Improvement in the bilateral pneumonia Worsening in the bilateral subcutaneous emphysema. Curvilinear density overlies the upper lungs bilaterally. Physical exam: General: Alert, In no apparent distress, Oriented x2, no confusion noted. Some anxiety Respiratory: Clear. Down to high flow at 90% Cardiovascular: Regular rate/rhythm, Normal S1 S2, No murmurs Gastrointestinal: Normal bowel sounds, Soft and benign, Non-distended, No tenderness Musculoskeletal: No clubbing, No swelling, No tenderness Neurological: Normal speech, Normal strength at 5/5 x4 extr, Normal tone, Sensation intact, Cranial nerves 3-12 intact Impression: Dyspnea secondary to acute respiratory failure with hypoxia related to bilateral Covid pneumonia Acute encephalopathy suspect alcohol withdrawal with delirium Hypertension Hyperlipidemia Alcohol abuse Leukocytosis Plan: Dyspnea secondary to acute respiratory failure with hypoxia related to bilateral Covid pneumonia: Slow improvement noted. Down to high flow at 90%. Continue IV steroids and supplementation. Encourage proning, incentive spirometer. Patient has been accepted to LTAC but needs improvement on high flow at less than 85%. Continue to monitor high flow closely. Discussed with respiratory to help wean off high flow. Acute encephalopathy suspect alcohol withdrawal with delirium: Overall resolved. We will monitor this closely. Hypertension: Continue with metoprolol and losartan. Will monitor and adjust appropriately. Hyperlipidemia: Continue Lipitor 20 mg daily. Alcohol abuse: Continue with thiamine and folic acid. Leukocytosis: Likely from steroids. Will monitor closely CODE STATUS: Full code DVT prophylaxis: Xarelto [facility] [id number] minutes: LTAC Time Spent Managing Pts Care (In Minutes): 55
[2020-12-15] MEDS: INSULIN -REGULAR HUMAN 50 UNIT/0.5 ML ML SQ SCH ×4 (07:30→21:00)
--- NOTE | 2020-12-15 07:39 | RAD REPORT ---
EXAM DESCRIPTION: Ann Single View12/15/2020 7:10 am CLINICAL HISTORY: Shortness of breath COMPARISON: December 05, 2020 FINDINGS: The bilateral subcutaneous emphysema has progressed. Pneumomediastinum. Improvement in the bilateral pulmonary opacities. Heart is normal size Curvilinear density overlies the upper lungs bilaterally IMPRESSION: Improvement in the bilateral pneumonia Worsening in the bilateral subcutaneous emphysema. Curvilinear density overlies the upper lungs bilaterally. Skin folds versus small pneumothoraces
[2020-12-15] MEDS: VITAMIN D 1000 UNIT TAB PO SCH (08:47)
[2020-12-15] MEDS: THIAMINE HCL 100 MG TABLET PO SCH (08:47)
[2020-12-15] MEDS: CYANOCOBALAMIN 1,000 MCG TAB SL SCH (08:47)
[2020-12-15] MEDS: LOSARTAN POTASSIUM 50 MG TABLET PO SCH ×2 (08:47→20:38)
[2020-12-15] MEDS: FAMOTIDINE 20 MG TAB PO SCH ×2 (08:47→20:38)
[2020-12-15] MEDS: ASCORBIC ACID 500 MG TABLET PO SCH ×4 (08:48→20:38)
[2020-12-15] MEDS: METHYLPREDNISOLONE 40 MG INJ IV SCH ×2 (08:48→20:37)
[2020-12-15] MEDS: FOLIC ACID 1 MG TABLET PO SCH (08:48)
[2020-12-15] MEDS: ZINC SULFATE 220 MG CAP PO SCH (08:48)
[2020-12-15] MEDS: FLUTICASONE 50MCG NASAL SPRAY NAS SCH (08:49)
[2020-12-15] MEDS ORDERED: FENTANYL CITR 100 MCG/2 ML ONE (12:32)
[2020-12-15] MEDS ORDERED: propofoL 200 MG/20 ML VIAL IV ONE (12:32)
[2020-12-15] MEDS ORDERED: ONDANSETRON 4 MG/2 ML VIAL ONE (12:33)
[2020-12-15] MEDS: RIVAROXABAN 20 MG TABLET PO SCH (17:21)
[2020-12-15] MEDS: ALPRAZOLAM 0.25 MG TABLET PO PRN (20:38)
[2020-12-16 05:06] LABS: Absolute Lymphocytes (CBC) 0.4 K/uL (0.7-4.9); Basophils % 0.1 % (0-1.3); Hematocrit 44.6 % (39.6-49.0); Lymphocytes % 3.5 % (15.3-44.8); MPV 9.3 fL (7.6-11.3); RBC Red Blood Cell Count 4.27 M/uL (4.33-5.43)
[2020-12-16 06:13] LABS: BUN Blood Urea Nitrogen 39 mg/dL (7-18); Bicarbonate 26 mmol/L (21-32); Glucose Level 114 mg/dL (74-106); Magnesium 2.8 mg/dL (1.8-2.4); Phosphorus 5.2 mg/dL (2.5-4.9); Potassium 5.2 mmol/L (3.5-5.1); Sodium Level 140 mmol/L (136-145)
[2020-12-16] MEDS: METOPROLOL TAR 25 MG TAB PO SCH ×2 (06:15→17:00)
--- NOTE | 2020-12-16 06:31 | P.PN ---
Subjective Date of Service: 12/16/20 Chief Complaint: covid pneumonia Subjective: Improving Physical Examination - Vital Signs Temperature: 97.4 F Blood Pressure: 114/81 Pulse: 92 Respirations: 17 Pulse Ox (%): 94 - Studies Medications List Reviewed: Yes Assessment & Plan Discharge Plan: LTAC Plan to discharge in: 24 Hours Physician Review Additional Text: Covid: Positive, unvaccinated CT head: COMPARISON: No comparisons TECHNIQUE: Axial 5 mm thick images of the head were obtained without IV contrast. All CT scans are performed using dose optimization technique as appropriate and may include automated exposure control or mA/KV adjustment according to patient size. FINDINGS: No intracranial hemorrhage, mass, edema or shift of mid-line s tructures. No acute infarction changes seen. No abnormal extra-axial fluid collections. Ventricles are normal. No significant atrophy or chronic ischemic change. Mastoid air cells and visualized portions of the paranasal sinuses are clear. No acute bony findings. IMPRESSION: Negative non-contrast CT head examination for acute or significant finding. Echocardiogram: MEASUREMENTS (cm) DIASTOLIC (NORMALS) SYSTOLIC (NORMALS) IVSd 1.0 (0.6-1.2) LA Diam 2.9 (1.9-4.0) LVEF 55% LVIDd 4.8 (3.5-5.7) LVIDs 3.4 (2.0-3.5) %FS 29% LVPWd 1.0 (0.6-1.2) Ao Diam 3.3 (2.0-3.7) 2 DIMENSIONAL ASSESSMENT: RIGHT ATRIUM: NORMAL LEFT ATRIUM: NORMAL RIGHT VENTRICLE: NORMAL LEFT VENTRICLE: NORMAL TRICUSPID VALVE: NORMAL MITRAL VALVE: NORMAL PULMONIC VALVE: AORTIC VALVE: NORMAL PERICARDIAL EFFUSION: NONE AORTIC ROOT: NORMAL LEFT VENTRICULAR WALL MOTION: NORMAL DOPPLER/COLOR FLOW: MILD TRICUSPID AND MITRAL REGURGITATION. COMMENTS: NORMAL LEFT VENTRICULAR EJECTION FRACTION 55-60% WITH NORMAL WALL MOTION. MILD TRICUSPID AND MITRAL REGURGITATION. Follow-up chest x-ray 12/15/2020: COMPARISON: December 05, 2020 FINDINGS: The bilateral subcutaneous emphysema has progressed. Pneumomediastinum. Improvement in the bilateral pulmonary opacities. Heart is normal size Curvilinear density overlies the upper lungs bilaterally IMPRESSION: Improvement in the bilateral pneumonia Worsening in the bilateral subcutaneous emphysema. Curvilinear density overlies the upper lungs bilaterally. Physical exam: General: Alert, In no apparent distress, Oriented x2, no confusion noted. Some anxiety Respiratory: Clear. Down to high flow at 90% Cardiovascular: Regular rate/rhythm, Normal S1 S2, No murmurs Gastrointestinal: Normal bowel sounds, Soft and benign, Non-distended, No tenderness Musculoskeletal: No clubbing, No swelling, No tenderness Neurological: Normal speech, Normal strength at 5/5 x4 extr, Normal tone, Sensation intact, Cranial nerves 3-12 intact Impression: Dyspnea secondary to acute respiratory failure with hypoxia related to bilateral Covid pneumonia Acute encephalopathy suspect alcohol withdrawal with delirium Hypertension Hyperlipidemia Alcohol abuse Leukocytosis Plan: Dyspnea secondary to acute respiratory failure with hypoxia related to bilateral Covid pneumonia: Improvement noted. Patient remained stable on 90% high flow. Continue IV steroids and supplementation. Encourage proning, incentive sp irometer. Patient has been accepted to LTAC but needs to wait on bed availability. Will discuss with social work coordinator. Acute encephalopathy suspect alcohol withdrawal with delirium: Overall resolved. We will monitor this closely. Hypertension: Continue with metoprolol and losartan. Will monitor and adjust appropriately. Hyperlipidemia: Continue Lipitor 20 mg daily. Alcohol abuse: Continue with thiamine and folic acid. Leukocytosis: Likely from steroids. Will monitor closely CODE STATUS: Full code DVT prophylaxis: Xarelto [facility] [email or web address] minutes: LTAC. Awaiting on bed patient has been approved for LTAC. Time Spent Managing Pts Care (In Minutes): 55
[2020-12-16] MEDS: INSULIN -REGULAR HUMAN 50 UNIT/0.5 ML ML SQ SCH ×4 (07:30→20:59)
[2020-12-16] MEDS: CYANOCOBALAMIN 1,000 MCG TAB SL SCH (08:29)
[2020-12-16] MEDS: THIAMINE HCL 100 MG TABLET PO SCH (08:29)
[2020-12-16] MEDS: VITAMIN D 1000 UNIT TAB PO SCH (08:29)
[2020-12-16] MEDS: METHYLPREDNISOLONE 40 MG INJ IV SCH ×2 (08:30→21:00)
[2020-12-16] MEDS: ZINC SULFATE 220 MG CAP PO SCH (08:30)
[2020-12-16] MEDS: LOSARTAN POTASSIUM 50 MG TABLET PO SCH ×2 (08:30→20:58)
[2020-12-16] MEDS: FAMOTIDINE 20 MG TAB PO SCH ×2 (08:30→21:00)
[2020-12-16] MEDS: FOLIC ACID 1 MG TABLET PO SCH (08:30)
[2020-12-16] MEDS: ASCORBIC ACID 500 MG TABLET PO SCH ×4 (08:30→21:00)
[2020-12-16] MEDS: FLUTICASONE 50MCG NASAL SPRAY NAS SCH (08:31)
[2020-12-16] MEDS ORDERED: DOCUSATE NA 100 MG CAP PO PRN (12:00)
[2020-12-16] MEDS: RIVAROXABAN 20 MG TABLET PO SCH (17:00)
[2020-12-16] MEDS: BENZONATATE 100 MG CAP PO PRN (21:00)
[2020-12-16] MEDS: ALPRAZOLAM 0.25 MG TABLET PO PRN (21:00)
[2020-12-17 03:42] LABS: Absolute Lymphocytes (CBC) 0.4 K/uL (0.7-4.9); Hematocrit 42.7 % (39.6-49.0); Lymphocytes % 3.4 % (15.3-44.8); MPV 9.1 fL (7.6-11.3); RBC Red Blood Cell Count 4.07 M/uL (4.33-5.43)
[2020-12-17 04:03] LABS: BUN Blood Urea Nitrogen 39 mg/dL (7-18); Bicarbonate 26 mmol/L (21-32); C-Reactive Protein 4.08 mg/L (<3.00); Ferritin 477.2 ng/mL (26-388); Glucose Level 130 mg/dL (74-106); Magnesium 2.8 mg/dL (1.8-2.4); Potassium 5.3 mmol/L (3.5-5.1); Sodium Level 141 mmol/L (136-145)
[2020-12-17] MEDS: METOPROLOL TAR 25 MG TAB PO SCH ×2 (05:27→17:28)
--- NOTE | 2020-12-17 06:13 | P.PN ---
Subjective Date of Service: 12/17/20 Chief Complaint: covid pneumonia Subjective: Other (Patient doing well at this morning. No changes reported by patient) Physical Examination - Vital Signs Temperature: 98.4 F Blood Pressure: 107/74 Pulse: 86 Respirations: 22 Pulse Ox (%): 92 - Studies Medications List Reviewed: Yes Assessment & Plan Discharge Plan: LTAC Plan to discharge in: 48 Hours Physician Review Additional Text: Covid: Positive, unvaccinated CT head: COMPARISON: No comparisons TECHNIQUE: Axial 5 mm thick images of the head were obtained without IV contrast. All CT scans are performed using dose optimization technique as appropriate and may include automated exposure control or mA/KV adjustment according to patient size. FINDINGS: No intracranial hemorrhage, mass, edema or shift of mid-line structures. No acute infarction changes seen. No abnormal extra-axial fluid collections. Ventricles are normal. No significant atrophy or chronic ischemic change. Mastoid air cells and visualized portions of the paranasal sinuses are clear. No acute bony findings. IMPRESSION: Negative non-contrast CT head examination for acute or significant finding. Echocardiogram: MEASUREMENTS (cm) DIASTOLIC (NORMALS) SYSTOLIC (NORMALS) IVSd 1.0 (0.6-1.2) LA Diam 2.9 (1.9-4.0) LVEF 55% LVIDd 4.8 (3.5-5.7) LVIDs 3.4 (2.0-3.5) %FS 29% LVPWd 1.0 (0.6-1.2) Ao Diam 3.3 (2.0-3.7) 2 DIMENSIONAL ASSESSMENT: RIGHT ATRIUM: NORMAL LEFT ATRIUM: NORMAL RIGHT VENTRICLE: NORMAL LEFT VENTRICLE: NORMAL TRICUSPID VALVE: NORMAL MITRAL VALVE: NORMAL PULMONIC VALVE: AORTIC VALVE: NORMAL PERICARDIAL EFFUSION: NONE AORTIC ROOT: NORMAL LEFT VENTRICULAR WALL MOTION: NORMAL DOPPLER/COLOR FLOW: MILD TRICUSPID AND MITRAL REGURGITATION. COMMENTS: NORMAL LEFT VENTRICULAR EJECTION FRACTION 55-60% WITH NORMAL WALL MOTION. MILD TRICUSPID AND MITRAL REGURGITATION. Follow-up chest x-ray 12/15/2020: COMPARISON: December 05, 2020 FINDINGS: The bilateral subcutaneous emphysema has progressed. Pneumomediastinum. Improvement in the bilateral pulmonary opacities. Heart is normal size Curvilinear density overlies the upper lungs bilaterally IMPRESSION: Improvement in the bilateral pneumonia Worsening in the bilateral subcutaneous emphysema. Curvilinear density overlies the upper lungs bilaterally. Physical exam: General: Alert, In no apparent distress, Oriented x2, no confusion noted. Some anxiety Respiratory: Clear. Down to high flow at 90% Cardiovascular: Regular rate/rhythm, Normal S1 S2, No murmurs Gastrointestinal: Normal bowel sounds, Soft and benign, Non-distended, No tenderness Musculoskeletal: No clubbing, No swelling, No tenderness Neurological: Normal speech, Normal strength at 5/5 x4 extr, Normal tone, Sensation intact, Cranial nerves 3-12 intact Impression: Dyspnea secondary to acute respiratory failure with hypoxia related to bilateral Covid pneumonia Acute encephalopathy suspect alcohol withdrawal with delirium Hypertension Hyperlipidemia Alcohol abuse Leukocytosis Rectal bleeding Plan: Dyspnea secondary to acute respiratory failure with hypoxia related to bilateral Covid pneumonia: Patient remained stable on 90% high flow. Continue current medications. Continue IV steroids and supplementation. Continue to wean off oxygen to maintain sats above 93%.Encourage proning, incentive spirometer. Patient has been accepted to LTAC but needs to wait on bed availability. Will discuss with social service manager. Acute encephalopathy suspect alcohol withdrawal with delirium: Overall resolved. We will monitor this closely. Hypertension: Continue with metoprolol and losartan. Will monitor and adjust appropriately. Hyperlipidemia: Continue Lipitor 20 mg daily. Alcohol abuse: Continue with thiamine and folic acid. Leukocytosis: Likely from steroids. Will monitor closely Rectal bleeding: Suspect hemorrhoids. Will provide Anusol. Continue with stool softener. Hemoglobin stable. We will monitor this closely. Nurses report some breakdown. Will consult wound care to further evaluate and treat. CODE STATUS: Full code DVT prophylaxis: Xarelto [facility] [id number] minutes: LTAC. Awaiting on bed patient has been approved for LTAC. Time Spent Managing Pts Care (In Minutes): 55
[2020-12-17] MEDS: INSULIN -REGULAR HUMAN 50 UNIT/0.5 ML ML SQ SCH ×4 (07:30→20:09)
[2020-12-17] MEDS: ZINC SULFATE 220 MG CAP PO SCH (08:43)
[2020-12-17] MEDS: FAMOTIDINE 20 MG TAB PO SCH ×2 (08:43→20:08)
[2020-12-17] MEDS: CYANOCOBALAMIN 1,000 MCG TAB SL SCH (08:43)
[2020-12-17] MEDS: THIAMINE HCL 100 MG TABLET PO SCH (08:43)
[2020-12-17] MEDS: LOSARTAN POTASSIUM 50 MG TABLET PO SCH ×2 (08:43→20:08)
[2020-12-17] MEDS: ASCORBIC ACID 500 MG TABLET PO SCH ×4 (08:43→20:08)
[2020-12-17] MEDS: FOLIC ACID 1 MG TABLET PO SCH (08:44)
[2020-12-17] MEDS: METHYLPREDNISOLONE 40 MG INJ IV SCH ×2 (08:44→20:08)
[2020-12-17] MEDS: VITAMIN D 1000 UNIT TAB PO SCH (08:44)
[2020-12-17] MEDS: FLUTICASONE 50MCG NASAL SPRAY NAS SCH (08:45)
[2020-12-17] MEDS: DOCUSATE NA 100 MG CAP PO SCH (12:38)
[2020-12-17] MEDS: BENZONATATE 100 MG CAP PO PRN (20:08)
[2020-12-17] MEDS: HYDROCORTISONE 2.5% RECT CR PR SCH (20:08)
[2020-12-18] MEDS: METOPROLOL TAR 25 MG TAB PO SCH (05:57)
--- NOTE | 2020-12-18 06:14 | P.PN ---
Subjective Date of Service: 12/18/20 Chief Complaint: covid pneumonia Subjective: Improving (Patient down to high flow at 70%) Physical Examination - Vital Signs Temperature: 98.0 F Blood Pressure: 108/62 Pulse: 73 Respirations: 22 Pulse Ox (%): 93 - Studies Medications List Reviewed: Yes Assessment & Plan Discharge Plan: LTAC Plan to discharge in: 24 Hours Physician Review Additional Text: Covid: Positive, unvaccinated CT head: COMPARISON: No comparisons TECHNIQUE: Axial 5 mm thick images of the head were obtained without IV contrast. All CT scans are performed using dose optimization technique as appropriate and may include automated exposure control or mA/KV adjustment according to patient size. FINDINGS: No intracranial hemorrhage, mass, edema or shift of mid-line structures. No acute infarction changes seen. No abnormal extra-axial fluid collections. Ventricles are normal. No significant atrophy or chronic ischemic change. Mastoid air cells and visualized portions of the paranasal sinuses are clear. No acute bony findings. IMPRESSION: Negative non-contrast CT head examination for acute or significant finding. Echocardiogram: MEASUREMENTS (cm) DIASTOLIC (NORMALS) SYSTOLIC (NORMALS) IVSd 1.0 (0.6-1.2) LA Diam 2.9 (1.9-4.0) LVEF 55% LVIDd 4.8 (3.5-5.7) LVIDs 3.4 (2.0-3.5) %FS 29% LVPWd 1.0 (0.6-1.2) Ao Diam 3.3 (2.0-3.7) 2 DIMENSIONAL ASSESSMENT: RIGHT ATRIUM: NORMAL LEFT ATRIUM: NORMAL RIGHT VENTRICLE: NORMAL LEFT VENTRICLE: NORMAL TRICUSPID VALVE: NORMAL MITRAL VALVE: NORMAL PULMONIC VALVE: AORTIC VALVE: NORMAL PERICARDIAL EFFUSION: NONE AORTIC ROOT: NORMAL LEFT VENTRICULAR WALL MOTION: NORMAL DOPPLER/COLOR FLOW: MILD TRICUSPID AND MITRAL REGURGITATION. COMMENTS: NORMAL LEFT VENTRICULAR EJECTION FRACTION 55-60% WITH NORMAL WALL MOTION. MILD TRICUSPID AND MITRAL REGURGITATION. Follow-up chest x-ray 12/15/2020: COMPARISON: December 05, 2020 FINDINGS: The bilateral subcutaneous emphysema has progressed. Pneumomediastinum. Improvement in the bilateral pulmonary opacities. Heart is normal size Curvilinear density overlies the upper lungs bilaterally IMPRESSION: Improvement in the bilateral pneumonia Worsening in the bilateral subcutaneous emphysema. Curvilinear density overlies the upper lungs bilaterally. Physical exam: General: Alert, In no apparent distress, Oriented x2, no confusion noted. Some anxiety Respiratory: Clear. Down to high flow at 90% Cardiovascular: Regular rate/rhythm, Normal S1 S2, No murmurs Gastrointestinal: Normal bowel sounds, Soft and benign, Non-distended, No tenderness Musculoskeletal: No clubbing, No swelling, No tenderness Neurological: Normal speech, Normal strength at 5/5 x4 extr, Normal tone, Sensation intact, Cranial nerves 3-12 intact Impression: Dyspnea secondary to acute respiratory failure with hypoxia related to bilateral Covid pneumonia Acute encephalopathy suspect alcohol withdrawal with delirium Hypertension Hyperlipidemia Alcohol abuse Leukocytosis Rectal bleeding Plan: Dyspnea secondary to acute respiratory failure with hypoxia related to bilateral Covid pneumonia: Patient down to high flow at 70%. Continue current medications. Patient has been accepted to LTAC. Bed is available. Patient will be transferred to LTAC today. Acute encephalopathy suspect alcohol withdrawal with delirium: Overall resolved. We will monitor this closely. Hypertension: Continue with metoprolol and losartan. Will monitor and adjust appropriately. Hyperlipidemia: Continue Lipitor 20 mg daily. Alcohol abuse: Continue with thiamine and folic acid. Leukocytosis: Likely from steroids. Will monitor closely Rectal bleeding: Suspect hemorrhoids. Will provide Anusol. Continue with stool softener. Continue with wound care instruction CODE STATUS: Full code DVT prophylaxis: Xarelto [facility] care [email or web address] minutes: LTAC. Time Spent Managing Pts Care (In Minutes): 55
[2020-12-18] MEDS: INSULIN -REGULAR HUMAN 50 UNIT/0.5 ML ML SQ SCH ×2 (07:30→11:30)
[2020-12-18] MEDS: THIAMINE HCL 100 MG TABLET PO SCH (09:06)
[2020-12-18] MEDS: ASCORBIC ACID 500 MG TABLET PO SCH ×2 (09:06→12:32)
[2020-12-18] MEDS: HYDROCORTISONE 2.5% RECT CR PR SCH (09:06)
[2020-12-18] MEDS: VITAMIN D 1000 UNIT TAB PO SCH (09:06)
[2020-12-18] MEDS: CYANOCOBALAMIN 1,000 MCG TAB SL SCH (09:07)
[2020-12-18] MEDS: LOSARTAN POTASSIUM 50 MG TABLET PO SCH (09:07)
[2020-12-18] MEDS: CYANOCOBALAMIN 1000MCG/ML INJ IM SCH (09:07)
[2020-12-18] MEDS: FAMOTIDINE 20 MG TAB PO SCH (09:07)
[2020-12-18] MEDS: DOCUSATE NA 100 MG CAP PO SCH (09:07)
[2020-12-18] MEDS: FOLIC ACID 1 MG TABLET PO SCH (09:07)
[2020-12-18] MEDS: METHYLPREDNISOLONE 40 MG INJ IV SCH (09:07)
[2020-12-18] MEDS: ZINC SULFATE 220 MG CAP PO SCH (09:07)
[2020-12-18] MEDS: FLUTICASONE 50MCG NASAL SPRAY NAS SCH (09:08)
[2020-12-18 10:11] VITALS: O2SAT 92
[2020-12-18 13:20] VITALS: BP 108/62; TEMP 98
--- NOTE | 2020-12-18 13:24 | P.DS ---
Admission Date: 11/26/20 Discharge Date: 12/18/20 [facility]position[facility] Discharge Condition: FAIR Reason for Admission: covid pneumonia Consultations: Pulmonary-Dr. Felton Procedures: Covid: Positive, unvaccinated CT head: COMPARISON: No comparisons TECHNIQUE: Axial 5 mm thick images of the head were obtained without IV contrast. All CT scans are performed using dose optimization technique as appropriate and may include automated exposure control or mA/KV adjustment according to patient size. FINDINGS: No intracranial hemorrhage, mass, edema or shift of mid-line structures. No acute infarction changes seen. No abnormal extra-axial fluid collections. Ventricles are normal. No significant atrophy or chronic ischemic change. Mastoid air cells and visualized portions of the paranasal sinuses are clear. No acute bony findings. IMPRESSION: Negative non-contrast CT head examination for acute or significant finding. Echocardiogram: MEASUREMENTS (cm) DIASTOLIC (NORMALS) SYSTOLIC (NORMALS) IVSd 1.0 (0.6-1.2) LA Diam 2.9 (1.9-4.0) LVEF 55% LVIDd 4.8 (3.5-5.7) LVIDs 3.4 (2.0-3.5) %FS 29% LVPWd 1.0 (0.6-1.2) Ao Diam 3.3 (2.0-3.7) 2 DIMENSIONAL ASSESSMENT: RIGHT ATRIUM: NORMAL LEFT ATRIUM: NORMAL RIGHT VENTRICLE: NORMAL LEFT VENTRICLE: NORMAL TRICUSPID VALVE: NORMAL MITRAL VALVE: NORMAL PULMONIC VALVE: AORTIC VALVE: NORMAL PERICARDIAL EFFUSION: NONE AORTIC ROOT: NORMAL LEFT VENTRICULAR WALL MOTION: NORMAL DOPPLER/COLOR FLOW: MILD TRICUSPID AND MITRAL REGURGITATION. COMMENTS: NORMAL LEFT VENTRICULAR EJECTION FRACTION 55-60% WITH NORMAL WALL MOTION. MILD TRICUSPID AND MITRAL REGURGITATION. Follow-up chest x-ray 12/15/2020: COMPARISON: December 05, 2020 FINDINGS: The bilateral subcutaneous emphysema has progressed. Pneumomediastinum. Improvement in the bilateral pulmonary opacities. Heart is normal size Curvilinear density overlies the upper lungs bilaterally IMPRESSION: Improvement in the bilateral pneumonia Worsening in the bilateral subcutaneous emphysema. Curvilinear density overlies the upper lungs bilaterally. Medical problem list: Dyspnea secondary to acute respiratory failure with hypoxia related to bilateral Covid pneumonia Acute encephalopathy suspect alcohol withdrawal with delirium Hypertension Hyperlipidemia Alcohol abuse Leukocytosis Rectal bleeding, hemorrhoids Brief History of Present Illness: 59-year-old male with history of hypertension and hyperlipidemia presents with Covid pneumonia. Patient was recently admitted and discharged. Patient continued to have increasing shortness of breath. Patient found to be hypoxic. Patient was admitted for further evaluation and treatment. Hospital Course: Patient presented with dyspnea secondary to acute respiratory failure with hypoxia related to bilateral Covid pneumonia. Patient also had acute encephalopathy likely from alcohol withdrawal and delirium. The delirium has resolved. Patient remains on treatment for Covid pneumonia. Patient currently on high flow at 70%. Patient has been evaluated for long-term acute care facility placement to continue his therapy. Patient has been approved. Bed now available. Patient will be transferred to long-term acute facility continue current treatment. Continue with IV steroids, supplements. Continue to wean off oxygen. Patient stable for transfer. Patient with other medical problems including hypertension, hyperlipidemia and rectal bleeding related to hemorrhoids. Patient will continue with current medications including metoprolol, losartan, Lipitor, thiamine, folic acid, and stool softener with Anusol cream. Continue with wound care instructions. Vital Signs/Physical Exam: Temp Pulse Resp BP Pulse Ox 98.0 F 73 22 H 108/62 93 12/18/20 13:20 12/18/20 13:20 12/18/20 13:20 12/18/20 13:20 12/18/20 13:20 General: Alert, In no apparent distress, Oriented x3, Cooperative HEENT: Atraumatic Neck: Supple Respiratory: Clear to auscultation bilaterally, Other (Currently on high flow at 70%) Cardiovascular: Normal pulses Gastrointestinal: Normal bowel sounds Musculoskeletal: No tenderness Integumentary: No tenderness/swelling Neurological: Normal speech, Normal strength at 5/5 x4 extr, Normal tone Laboratory Data at Discharge: WBC 11.10 K/uL (4.3-10.9) H 12/17/20 03:21 Hgb 13.9 g/dL (13.6-17.9) 12/17/20 03:21 Hct 42.7 % (39.6-49.0) 12/17/20 03:21 Plt Count 154 K/uL (152-406) 12/17/20 03:21 Sodium 141 mmol/L (136-145) 12/17/20 03:21 Potassium 4.6 mmol/L (3.5-5.1) 12/17/20 06:43 BUN 39 mg/dL (7-18) H 12/17/20 03:21 Creatinine 0.82 mg/dL (0.55-1.3) 12/17/20 03:21 Glucose 130 mg/dL (74-106) H 12/17/20 03:21 Phosphorus 5.2 mg/dL (2.5-4.9) H 12/16/20 04:47 Magnesium 2.8 mg/dL (1.8-2.4) H 12/17/20 03:21 Total Bilirubin 0.5 mg/dL (0.2-1.0) 12/10/20 11:09 AST 11 U/L (15-37) L 12/10/20 11:09 ALT 27 U/L (12-78) 12/10/20 11:09 Alkaline Phosphatase 76 U/L (45-117) 12/10/20 11:09 Home Medications: Ascorbic Acid [Vitamin C*] 1,000 mg PO TID #180 tablet 11/25/20 Aspirin [Aspirin EC 81 MG] 162 mg PO DAILY #60 tablet. 11/25/20 Benzonatate [Tessalon Perle*] 100 mg PO TID PRN #30 cap 11/25/20 Cholecalciferol (Vitamin D3) [Vitamin D3] 2,000 unit PO DAILY #60 capsule 11/25/20 Famotidine [Pepcid*] 20 mg PO BID #60 tab 11/25/20 Ivermectin 18 mg PO Q48H #1 tablet 11/25/20 Thiamine HCl [Vitamin B-1*] 200 mg PO DAILY #60 tablet 11/25/20 Zinc Sulfate [Zinc Sulfate*] 220 mg PO DAILY #30 cap 11/25/20 Atorvastatin Calcium [Lipitor*] 20 mg PO BEDTIME 11/26/20 Enalapril Maleate [Vasotec] 5 mg PO DAILY 11/26/20 dexAMETHasone [Dexamethasone] 2 mg PO Q8H 11/26/20 Albuterol Inhaler [Ventolin Inhaler*] 2 puff IH Q6H PRN #1 hfa.aer.ad 12/07/20 Ascorbic Acid [Vitamin C*] 500 mg PO QID #120 tablet 12/07/20 Benzonatate [Tessalon Perle*] 100 mg PO TID PRN #30 cap 12/07/20 Budesonide/Formoterol Fumarate [Symbicort 160-4.5 Mcg Inhaler] 2 puff IH BID #1 hfa.aer.ad 12/07/20 Cholecalciferol (Vitamin D3) [Vitamin D 1000 Iu Tab*] 4,000 unit PO DAILY #60 tab 12/07/20 Cyanocobalamin [Vitamin B-12*] 5,000 mcg SL DAILY #60 tab 12/07/20 Famotidine [Pepcid*] 20 mg PO BID #60 tab 12/07/20 Melatonin 5 mg PO BEDTIME PRN PRN #30 tablet 12/07/20 Methylpred Na Suc [Solu-Medrol] 80 mg IV Q12H #6 vial 12/07/20 Rivaroxaban [Xarelto] 20 mg PO DAILY #30 tab 12/07/20 Zinc Sulfate [Zinc Sulfate*] 220 mg PO DAILY #30 cap 12/07/20 New Medications: Melatonin 5 mg PO BEDTIME PRN PRN #30 tablet PRN Reason: Insomnia Famotidine [Pepcid*] 20 mg PO BID #60 tab Methylpred Na Suc [Solu-Medrol] 80 mg IV Q12H #6 vial Budesonide/Formoterol Fumarate [Symbicort 160-4.5 Mcg Inhaler] 2 puff IH BID #1 hfa.aer.ad Benzonatate [Tessalon Perle*] 100 mg PO TID PRN #30 cap PRN Reason: Cough Albuterol Inhaler [Ventolin Inhaler*] 2 puff IH Q6H PRN #1 hfa.aer.ad PRN Reason: Shortness Of Breath Cyanocobalamin [Vitamin B-12*] 5,000 mcg SL DAILY #60 tab Ascorbic Acid [Vitamin C*] 500 mg PO QID #120 tablet Cholecalciferol (Vitamin D3) [Vitamin D 1000 Iu Tab*] 4,000 unit PO DAILY #60 tab Rivaroxaban [Xarelto] 20 mg PO DAILY #30 tab Zinc Sulfate [Zinc Sulfate*] 220 mg PO DAILY #30 cap Physician Discharge Instructions: Okay to DC to long-term acute care facility. Continue with current medications. LTAC facility to further adjust medication Diet: AHA Activity: Fall precautions Followup: NONE,NONE [Primary Care Provider] - Time spent managing pt's care (in minutes): 55
== END 2020-12-18 15:51 | DRG 177 ==
LOC: ER 23:40 → ERHOLD 11-26 02:11 → 4TH 11-26 19:35
PROVIDERS: ADMIT Hospitalist; ATTEND Hospitalist
DX: U07.1 COVID-19 (principal); J12.82 Pneumonia due to coronavirus disease 2019; J96.01 Acute respiratory failure with hypoxia; F10.131 Alcohol abuse with withdrawal delirium; G93.40 Encephalopathy, unspecified; I10 Essential (primary) hypertension; E78.5 Hyperlipidemia, unspecified; D72.829 Elevated white blood cell count, unspecified; K64.9 Unspecified hemorrhoids; D51.9 Vitamin B12 deficiency anemia, unspecified
CPT/HCPCS: 36415; 70450; 71045; 80048; 80053; 82728; 82805; 82947; 83605; 83735; 83880; 84100; 84132; 84145; 85025; 85379; 86140; 93306; 94002; 94003; 94010; 94760; 96374; 97110; 97161; 97164; 99251; 99285; J0360; J0696; J1450; J1940; J2405; J2704; J2920; J2930; J3010; J3411; J3420; J3486; J7030